=== PATIENT | male | born 1980 | race Two or more races ===

== ENCOUNTER 2024-06-08 16:40 | Inpatient (IN) | payer MEDICAID, OTHER ==
[~2024-06-08] VITALS: Ht 165.1 cm; Wt 84.5 kg
[2024-06-08 17:00] VITALS: PULSE 102; RESP 13; O2SAT 92
--- NOTE | 2024-06-08 17:10 | ED.PDOC ---
GI ASSESSMENT HPI Comments 43 year old male brought in by EMS presents to the ED with a chief complaint of abdominal distension onset today. Per EMS, patient was at [facility], goes every 2 weeks for paracentesis. Patient's BP was low, was combative, did not allow urgent care to assist him and EMS was called. Upon ED arrival, patient's BP was 96/64, states he is experiencing abdominal distension and rectal pain. Denies any abominal pain, nausea, vomiting, diarrhea, fever, chest pain. No other symptoms or modifying factors present at this time. Patient has a extensive medical history including CHF, atrial fibrillation, liver cirrhosis and displays bilateral lower extremity amputations. 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, Medications, Allergies Allergies: Coded Allergies: NO KNOWN ALLERGIES (Unverified , 06/08/24) Information Source: Patient, Emergency Med Personnel Mode of Arrival: EMS Timing: Hours Duration: Since onset Prehospital treatment: None Quality: None Severity: Moderate Recent: None Recent Hx of: Liver Disease Pain Location: Diffuse Modifying Factors: Nothing Associated sign and symptoms: Abdominal Pain, Other (rectal pain) Past Medical History PAST MEDICAL HISTORY: CHF, DM, Liver Surgical History: Denies all surgeries Family History Family History: Reviewed,noncontributory to illness, No family hx of Cancer, No family hx of DM, No family hx of Heart kelvin, No family hx of HTN, No family hx ofKidney kelvin, No family hx of Liver kelvin, No family hx of Lung kelvin, No family hx of Stroke Social History Smoker: Non-Smoker Alcohol: Denies ETOH Use Drugs: Denies Drug Use Lives In: Home Constitutional: denies: chills, diaphoresis, fatigue, fever, malaise, sweats, weakness, others EENTM: denies: blurred vision, double vision, ear bleeding, ear discharge, ear drainage, ear pain, ear ringing, eye pain, eye redness, hearing loss, mouth pain, mouth swelling, nasal discharge, nose bleeding, nose congestion, nose pain, photophobia, tearing, throat pain, throat swelling, voice changes, others Respiratory: denies: cough, hemoptysis, orthopnea, SOB at rest, shortness of breath, SOB with excertion, stridor, wheezing, others Cardiovascular: denies: chest pain, dizzy spells, diaphoresis, Dyspnea on exertion, edema, irregular heart beat, left arm pain, lightheadedness, palpitations, PND, syncope, others Gastrointestinal: reports: abdomen distended, rectal pain; denies: abdominal pain, blood streaked bowels, constipated, diarrhea, dysphagia, difficulty swall owing, hematemesis, melena, nausea, poor appetite, poor fluid intake, rectal bleeding, vomiting, others Genitourinary: denies: burning, dysuria, flank pain, frequency, hematuria, incontinence, penile discharge, penile sore, pain, testicle pain, testicle swelling, urgency, others Neurological: denies: dizziness, fainting, headache, left sided numbness, left sided weakness, numbness, paresthesia, pre-existing deficit, right sided numbness, right sided weakness, seizure, speech problems, tingling, tremors, weakness, others Musculoskeletal: denies: back pain, gout, joint pain, joint swelling, muscle pain, muscle stiffness, neck pain, others Integumetry: denies: bruises, change in color, change in hair/nails, dryness, laceration, lesions, lumps, rash, wounds, others Allergic/Immunocompromised: denies: Difficulty Healing, Frequent Infections, Hives, Itching, others Hematologic/Lymphatic: denies: anemia, blood clots, easy bleeding, easy bruising, swollen glands, others Endocrine: denies: excessive hunger, excessive sweating, excessive thirst, excessive urination, flushing, intolerance to cold, intolerance to heat, u nexplained weight gain, unexplained weight loss, others Psychiatric: denies: anxiety, bipolar disorder, depression, hopeless, panic disorder, schizophrenia, sleepless, suicidal, others All Other Systems: Reviewed and Negative Physical Exam General Appearance: Moderate Distress (Due to an extremely distended belly), Obese HEENT: Normal ENT Inspection, Pharynx Normal, TMs Normal Neck: Full Range of Motion, Non-Tender, Normal, Normal Inspection Respiratory: Chest Non-Tender, Lungs Clear, No Accessory Muscle Use, No Respiratory Distress, Normal Breath Sounds Cardiovascular: No Edema, No JVD, No Murmur, No Gallop, Normal Peripheral Pulses, Regular Rate/Rhythm Breast Exam: Deferred Gastrointestinal: Other (Patient displays of exceptionally distended belly due to ascites. Skin was taut. Patient was in pain.) Genitalia: Deferred Pelvic: Deferred Rectal: Deferred Extremities: Other (Patient displays bilateral mid with femoral amputations. Fracture.) Musculoskeletal : Apperance: Normal Neurologic: Alert Cerebellar Function: NOT DONE Reflexes: NOT DONE Skin: Dry, Normal Color, Warm Lymphatic: No Adenopathy Was a procedure done? Was a procedure done?: No GI differential Dx Differential Diagnosis: Other (Liver cirrhosis, ascites, CHF, sepsis, electrolyte abnormality) X-Ray, Labs, Meds, VS Vital Signs Date Time Temp Pulse Resp B/P (MAP) Pulse Ox O2 Delivery O2 Flow Rate FiO2 06/08/24 19:22 Room Air* 0 21 06/08/24 17:32 102 96/69 06/08/24 17:02 98.2 98 16 96/64 (75) 95 06/08/24 17:00 102 13 96/69 (78) 92 06/08/24 17:00 102 13 92 Room Air* 0 21 06/08/24 16:55 112 Lab Test 06/08/24 17:50 06/08/24 17:16 Range/Units Urine Color Yellow Yellow Urine Clarity Clear Clear Urine pH 5.0 5.0-9.0 Urine Specific [place] 1.022 1.001-1.035 Urine Protein Trace H Negative Urine Ketones Negative Negative Urine Blood Negative Negative /uL Urine Nitrite Negative Negative Urine Bilirubin Negative Negative Urine Urobilinogen 2 H Negative mg/dL Urine Leukocyte Esterase Negative Negative /uL Urine RBC 1 0 - 3 /hpf Urine Microscopic WBC 3 0-3 /HPF Urine Squamous Epithelial Cells Few <5 /hpf Urine Bacteria Few H None Seen /hpf Urine Glucose Normal Normal mg/dL White Blood Count 7.2 4.4-10.8 10^3/uL Red Blood Count 4.43 L 4.5-5.90 10^6/uL Hemoglobin 14.2 13.5-17.5 g/dL Hematocrit 42.1 41.0-53.0 % Mean Corpuscular Volume 94.9 80.0-100.0 fL Mean Corpuscular Hemoglobin 32.1 H 28.0-32.0 pg Mean Corpuscular Hemoglobin Concent 33.8 32.0-36.0 g/dL Red Cell Distribution Width 16.8 H 11.8-14.3 % Platelet Count 209 140-450 10^3/uL Mean Platelet Volume 7.4 6.9-10.8 fL Neutrophils (%) (Auto) 78.2 37.0-80.0 % Lymphocytes (%) (Auto) 5.4 L 10.0-50.0 % Monocytes (%) (Auto) 15.0 H 0.0-12.0 % Eosinophils (%) (Auto) 0.8 0.0-7.0 % Basophils (%) (Auto) 0.6 0.0-2.0 % Neutrophils # (Auto) 5.7 1.6-8.6 10 ^3/uL Lymphocytes # (Auto) 0.4 0.4-5.4 10 ^3/uL Monocytes # (Auto) 1.1 0-1.3 10 ^3/uL Eosinophils # (Auto) 0.1 0-0.8 10 ^3/uL Basophils # (Auto) 0 0-0.2 10 ^3/uL Nucleated Red Blood Cells 0.2 % Sodium Level 129 L 136-145 mmol/L Potassium Level 4.5 3.5-5.1 mmol/L Chloride Level 99 98-107 mmol/L Carbon Dioxide Level 21 20-31 mmol/L Anion Gap 9 5-15 Blood Urea Nitrogen 63 H 9-23 mg/dL Creatinine 1.71 H 0.700-1.30 mg/dL Glomerular Filtration Rate Calc 51 >90 mL/min BUN/Creatinine Ratio 36.8 H 10.0-20.0 Serum Glucose 73 L 74-106 mg/dL Calcium Level 8.9 8.7-10.4 mg/dL Total Bilirubin 3.4 H 0.2-1.0 mg/dL Aspartate Amino Transferase (AST) 26 13-40 U/L Alanine Aminotransferase (ALT) 21 7-40 U/L Alkaline Phosphatase 216 H 46-116 U/L B-Type Natriuretic Peptide 3831.34 0-100 pg/mL Total Protein 5.1 L 5.7-8.2 g/dL Albumin 2.7 L 3.2-4.8 g/dL Lipase 25 12-53 U/L X-Ray, Labs, Meds, VS Comment All studies performed the ED were evaluated by me personally. Laboratories revealed a significant CHF concern. Additionally, our Interventional Radiology Department was unavailable to perform the paracentesis and we believe we were going to need to transfer the patient. Dr. Russo arrived and stated he could manage that procedure. Dr. Russo removed approximately 8 L of fluid off patient's belly. Patient required for some albumin resuscitation as well as antibiotics to stave off any infective components. Patient arrives in AFib with a rate of 112. Patient's heart rate reduced between 98 and 102 and therefore, medication was not dispensed. Patient is a [facility] patient and therefore, I discussed the case with Dr. King and advised her of initial presentation as well as Dr. Russo's paracentesis fluid removal quantity and concerns of infection as well as cardiac issues. Patient will be admitted for continued management. Time of 1ST Reevaluation: 21:15 Reevaluation 1ST: Improved Consultation: PCP Patient Education/Counseling: Diagnosis, Treatment, Prognosis Family Education/Counseling: Diagnosis, Treatment, No Family Present Additional Information The following tests were ordered, and results were reviewed by me: US PARACENTESIS, CBC, CMP, LIPASE, EKG -x3, BNP Additional Information was gathered from interviewing the following independent historians: EMS I reviewed and agreed with the following test results read by other providers: US PARACENTESIS I discussed treatment and results with medical personnel and patient Departure 1 Departure Time of Disposition: 21:16 Impression: Primary Impression: Ascites Additional Impressions: Liver cirrhosis Atrial fibrillation Congestive heart failure (CHF) Disposition: ADMITTED INPATIENT Condition: Fair Discharged With: Self Critical Care Note Critical Care Time?: No Stability Stability form required: No Heart Score Heart Score: Heart Score Response (Comments) Value History Slightly Suspicious 0 EKG Repolarization Disturb 1 Age <45 0 Risk Factors 1 or 2 risk factors 1 Troponin N/A 0 Total 2 I personally scribed for NEGRITO CHRISTINE PAC ([email or web address]) on 06/08/24 at 17:10. Electronically submitted by Lashaun Jung ([email or web address]). I personally scribed for NEGRITO CHRISTINE PAC ([email or web address]) on 06/08/24 at 17:16. Electronically submitted by Lashaun Jung ([email or web address]). NEGRITO CHRISTINE PAC Jun 08, 2024 17:10
[2024-06-08] MEDS: METOPROLOL TARTRATE 1MG/1ML-5ML VIAL IV ONE (17:32)
[2024-06-08 17:56] LABS: Basophils # (auto) 0 10 ^3/uL (0-0.2); Basophils % (auto) 0.6 % (0.0-2.0); Eosinophils # (auto) 0.1 10 ^3/uL (0-0.8); Eosinophils % (auto) 0.8 % (0.0-7.0); Hematocrit 42.1 % (41.0-53.0); Hemoglobin 14.2 g/dL (13.5-17.5); Lymphocytes # (auto) 0.4 10 ^3/uL (0.4-5.4); Lymphocytes % (auto) 5.4 % (10.0-50.0); Mean Corpuscular Hemoglobin 32.1 pg (28.0-32.0); Mean Corpuscular Hgb Conc. 33.8 g/dL (32.0-36.0); Mean Corpuscular Volume 94.9 fL (80.0-100.0); Monocytes # (auto) 1.1 10 ^3/uL (0-1.3); Neutrophils # (auto) 5.7 10 ^3/uL (1.6-8.6); Neutrophils % (auto) 78.2 % (37.0-80.0); Nucleated Red Blood Cells % 0.2 %; Platelet Count (auto) 209 10^3/uL (140-450); Red Blood Cells 4.43 10^6/uL (4.5-5.90); Red Cell Distribution Width 16.8 % (11.8-14.3); White Blood Cell 7.2 10^3/uL (4.4-10.8)
[2024-06-08 18:07] LABS: Alanine Aminotransferase 21 U/L (7-40); Anion Gap 9 (5-15); Aspartate Aminotransferase 26 U/L (13-40); BUN/Creatinine Ratio 36.8 (10.0-20.0); Calcium 8.9 mg/dL (8.7-10.4); Carbon Dioxide 21 mmol/L (20-31); Chloride 99 mmol/L (98-107); Lipase 25 U/L (12-53); Potassium 4.5 mmol/L (3.5-5.1)
[2024-06-08 18:08] LABS: Albumin 2.7 g/dL (3.2-4.8); Alkaline Phosphatase 216 U/L (46-116); Bilirubin, Total 3.4 mg/dL (0.2-1.0); Blood Urea Nitrogen 63 mg/dL (9-23); Glucose 73 mg/dL (74-106); Sodium 129 mmol/L (136-145); Total Protein 5.1 g/dL (5.7-8.2)
[2024-06-08 19:10] LABS: Urine Bacteria FEW /hpf (None Seen); Urine Blood Negative /uL (Negative); Urine Clarity Clear (Clear); Urine Color Yellow (Yellow); Urine Protein, UAD TRACE (Negative); Urine Specific Gravity 1.022 (1.001-1.035); Urine Squamous Epithelial Cell FEW /hpf (<5); Urine Urobilinogen 2 mg/dL (Negative); Urine WBC 3 /HPF (0-3)
--- NOTE | 2024-06-08 19:17 | ECG ---
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
--- NOTE | 2024-06-08 22:07 | DVHNC2 ---
Other Procedure Procedure Paracentesis ultrasound-guided Indication Rule out spontaneous bacterial peritonitis and severe abdominal pain Anesthetic Lidocaine Prep Iodine Success Successful procedure, obtain approximately 8 L of ascitic fluid which was serous Informed consent obtained: Yes Risks, benefits, and alternati: Yes Date of Service: Jun 08, 2024 Billing Provider: JESUS MANUEL MCDANIELS MD Common Visit Codes: PROCEDURE ONLY Procedure Codes: 21550-[id number] W/IMAGING LOVELY ALVAREZ RESIDENT Jun 08, 2024 22:07
[2024-06-08] MEDS: FUROSEMIDE 40 MG/4 ML VIAL IV ONE (22:10)
[2024-06-08] MEDS: ALBUMIN 25% 100 ML IV ONE (22:10)
[2024-06-08] MEDS: PIPERACILLIN-TAZOB 3.375GM 100 ML IV ONE (22:40)
[2024-06-09] MEDS ORDERED: MORPHINE SULFATE INJ 2 MG/ml SYRG IV PRN (01:00)
[2024-06-09] MEDS ORDERED: DOCUSATE SOD 100 MG CAP PO PRN (01:00)
[2024-06-09] MEDS ORDERED: DEXTROSE (50%) 50ML SYRG IV PRN (01:00)
[2024-06-09] MEDS ORDERED: NITROGLYCERIN 0.4 MG SL TAB SL PRN (01:00)
[2024-06-09] MEDS ORDERED: ONDANSETRON HCL 4 MG/2 ML VIAL IV PRN (01:00)
[2024-06-09] MEDS: SODIUM CHLORIDE 0.9% 500 ML IV ONE (01:01)
--- NOTE | 2024-06-09 01:17 | DVHHP2 ---
History of Present Illness Reason for Visit: Ascites History of Present Illness The patient is a 43-year-old male with past medical history of CHF, diabetes, and liver disease who presented to [facility] ED for evaluation of abdominal distention. As reported by EMS, patient was at [facility], goes every 2 weeks for paracentesis. but Patient's BP was low, was combative, did not allow urgent care to assist him so EMS were called. When EMS arrived on the scene, patient's BP was 96/64, states he is experiencing abdominal distension and rectal pain. Patient was seen and evaluated in the ED, laboratory data shows WBC 7.2, platelets 209, sodium 129, potassium 4.5, BUN 63, creatinine 1.71, GFR 51, glucose 73, albumin 2.7, protein 5.1, total bilirubin 3.4, BNP 3831.34, blood pressure 93/68, heart rate 102, temperature 98.2 F, O2 saturation 95% room air. Patient underwent paracentesis procedure with 8400 L of fluid was removed. Patient was started on IV antibiotic regimen Zosyn, given IV Lasix, please see medication orders section in the computer. On my assessment , patient denied chest pain, no headache, no dizziness, no diaphoresis, no shortness a breath, no nausea, no vomiting, no fever, no chills. Patient was admitted for further evaluation and medical management. Past Medical History CHF, DM, Liver Disease, Atrial fibrillation Past Surgical History Denies all surgeries Family History Reviewed, noncontributory to the management of this case. Past Social History The patient lives at home, denies smoking, alcohol or illicit drugs abuse. Review of Systems Constitutional: Yes: Weakness; No: Fever, Chills, Sweats, Malaise, Other Eyes: No: Pain, Vision change, Conjunctivae inflammation, Eyelid inflammation, Other, Redness ENT: No: Ear pain, Ear discharge, Nose pain, Nose discharge, Nose congestion, Mouth pain, Mouth swelling, Throat pain, Throat swelling, Other Respiratory: No: Cough, Dry, Shortness of breath, SOB with excertion, Wheezing, Hemoptysis, Pleuritic Pain, Sputum, Wheezing, Other Cardiovascular: No: Chest Pain, Palpitations, Orthopnea, Paroxysmal Noc. Dyspnea, Edema, Lt Headedness, Other Gastrointestinal: Abdominal Pain, Other (Distended abdomen); No: Nausea, Vomiting, Diarrhea, Constipation, Melena, Hematochezia Genitourinary: No Dysuria, No Frequency, No Incontinence, No Hematuria, No Retention, No Other Musculoskeletal: No: other, neck pain, shoulder pain, arm pain, back pain, hand pain, leg pain, foot pain Skin: No: Rash, Lesions, Jaundice, Bruising, Other Neurological: No: Weakness, Numbness, Incoordination, Change in speech, Confusion, Seizures, Other Allergies: Coded Allergies: NO KNOWN ALLERGIES (Unverified , 06/08/24) Exam Vital Signs Vital Signs Date Time Temp Pulse Resp B/P (MAP) Pulse Ox O2 Delivery O2 Flow Rate FiO2 06/08/24 22:10 93/68 06/08/24 19:22 Room Air* 0 21 06/08/24 17:32 102 06/08/24 17:02 98.2 16 95 General Appearance: Alert, Oriented X3, Cooperative, No acute distress HEENT: Atraumatic, PERRLA, EOMI, Mucous membr. moist/pink Respiratory: Clear to auscultation, Normal air movement Cardiovascular: Regular rate, Normal S1, Normal S2, No murmurs Abdominal: Normal bowel sounds, Soft, No hepatospenomegaly, No masses, Other (Reports tenderness) Extremities: No clubbing, No cyanosis, No edema, Normal pulses, No tenderness/swelling Skin: No rashes, No breakdown, No significant lesion Neuro: Normal speech, Normal tone, Sensation intact, Cranial nerves 3-12 NL, Reflexes 2+, Other (Generalized weakness) Psych/Mental Status: Mental status NL, Mood NL Labs/Xrays Labs Test 06/08/24 17:50 06/08/24 17:16 Range/Units Urine Color Yellow Yellow Urine Clarity Clear Clear Urine pH 5.0 5.0-9.0 Urine Specific [place] 1.022 1.001-1.035 Urine Protein Trace H Negative Urine Ketones Negative Negative Urine Blood Negative Negative /uL Urine Nitrite Negative Negative Urine Bilirubin Negative Negative Urine Urobilinogen 2 H Negative mg/dL Urine Leukocyte Esterase Negative Negative /uL Urine RBC 1 0 - 3 /hpf Urine Microscopic WBC 3 0-3 /HPF Urine Squamous Epithelial Cells Few <5 /hpf Urine Bacteria Few H None Seen /hpf Urine Glucose Normal Normal mg/dL White Blood Count 7.2 4.4-10.8 10^3/uL Red Blood Count 4.43 L 4.5-5.90 10^6/uL Hemoglobin 14.2 13.5-17.5 g/dL Hematocrit 42.1 41.0-53.0 % Mean Corpuscular Volume 94.9 80.0-100.0 fL Mean Corpuscular Hemoglobin 32.1 H 28.0-32.0 pg Mean Corpuscular Hemoglobin Concent 33.8 32.0-36.0 g/dL Red Cell Distribution Width 16.8 H 11.8-14.3 % Platelet Count 209 140-450 10^3/uL Mean Platelet Volume 7.4 6.9-10.8 fL Neutrophils (%) (Auto) 78.2 37.0-80.0 % Lymphocytes (%) (Auto) 5.4 L 10.0-50.0 % Monocytes (%) (Auto) 15.0 H 0.0-12.0 % Eosinophils (%) (Auto) 0.8 0.0-7.0 % Basophils (%) (Auto) 0.6 0.0-2.0 % Neutrophils # (Auto) 5.7 1.6-8.6 10 ^3/uL Lymphocytes # (Auto) 0.4 0.4-5.4 10 ^3/uL Monocytes # (Auto) 1.1 0-1.3 10 ^3/uL Eosinophils # (Auto) 0.1 0-0.8 10 ^3/uL Basophils # (Auto) 0 0-0.2 10 ^3/uL Nucleated Red Blood Cells 0.2 % Sodium Level 129 L 136-145 mmol/L Potassium Level 4.5 3.5-5.1 mmol/L Chloride Level 99 98-107 mmol/L Carbon Dioxide Level 21 20-31 mmol/L Anion Gap 9 5-15 Blood Urea Nitrogen 63 H 9-23 mg/dL Creatinine 1.71 H 0.700-1.30 mg/dL Glomerular Filtration Rate Calc 51 >90 mL/min BUN/Creatinine Ratio 36.8 H 10.0-20.0 Serum Glucose 73 L 74-106 mg/dL Calcium Level 8.9 8.7-10.4 mg/dL Total Bilirubin 3.4 H 0.2-1.0 mg/dL Aspartate Amino Transferase (AST) 26 13-40 U/L Alanine Aminotransferase (ALT) 21 7-40 U/L Alkaline Phosphatase 216 H 46-116 U/L B-Type Natriuretic Peptide 3831.34 0-100 pg/mL Total Protein 5.1 L 5.7-8.2 g/dL Albumin 2.7 L 3.2-4.8 g/dL Lipase 25 12-53 U/L Assessment/Plan Assessment/Plan Ascites Electrolyte imbalance Liver cirrhosis Atrial fibrillation Generalized weakness Acute exacerbation of congestive heart failure Plan 1. Admit to telemetry unit 2. Breathing treatment 3. Pain control management 4. IV antibiotic management 5. Management of fluids and electrolytes 6. Consultation for Cardiology 7. Diagnostic test chest x-ray 8. DVT prophylaxis-on SCDs 9. Repeat labs CBC, CMP in a.m. 10. Home medication reviewed and reconciled 11. Continue with current medical management 12. Treatment plan discussed with patient and RN. Patient verbalized understanding. Plan discussed with: Patient, Other (RN) My Orders Orders - RUBINA BECKETT DNP Procedure Category Date Status Time Sodium Chloride 0.9% PHA 06/09/24 In Process 01:00 Complete Blood Count LAB 06/09/24 Transmitted 04:00 Comprehensive LAB 06/09/24 Transmitted Metabolic Panel 04:00 Spironolactone PHA 06/09/24 Transmitted (Aldactone) 10:00 Furosemide Injection PHA 06/09/24 Transmitted (Lasix Injection) 10:00 Carvedilol Tablet PHA 06/09/24 Transmitted (Coreg Tablet) 10:00 Zosyn Extended PHA 06/09/24 Transmitted Infusion 06:00 * Cardiology Consult CONS 06/09/24 Transmitted 00:58 Glucose Blood PHA 06/09/24 Transmitted (Accu-Chek Comfort 07:00 Mild Sliding Scale PHA 06/09/24 Transmitted 07:00 Dextrose 50% Syringe PHA 06/09/24 Transmitted 01:00 Admit ADMIT 06/09/24 Transmitted 00:58 Allergies IVETTE 06/09/24 In Process 00:58 Code Status CODE 06/09/24 Transmitted 00:58 Sodium Chloride Lock PHA 06/09/24 Transmitted (Saline Lock Ns) 06:00 Oxygen Per Hour RT 06/09/24 Transmitted 00:58 Hydrocodone-Acet PHA 06/09/24 Transmitted 5/325mg Tab ([place] 01:00 Ondansetron Hcl PHA 06/09/24 Transmitted (Zofran) 01:00 Docusate Sodium PHA 06/09/24 Transmitted Capsule (Colace 01:00 Fall Risk Precautions IVETTE 06/09/[address] 00:58 Complete Blood Count LAB 06/10/24 Verified 04:00 Comprehensive LAB 06/10/24 Verified Metabolic Panel 04:00 Echo 2d Mode Cardiac US 06/09/24 Transmitted DOP 00:58 Condition: Serious IVETTE 06/09/24 In Process 00:58 Sequential IVETTE 06/09/24 In Process Compression Device Nitroglycerin PHA 06/09/24 Transmitted Sublingual (Ntrostat 01:00 Morphine Sulfate PHA 06/09/24 Transmitted Injection 01:00 Notify Of Changes [facility] 06/09/24 In Process From Base 00:58 Financial Analyst For [facility] 06/09/24 In Process 24 Hours 00:58 Emergency Dysrhythmia [facility] 06/09/24 In Process Protocol 00:58 Rhythm Strips Once [facility] 06/09/24 In Process Every Shift 00:58 Oxygen By Nasal RT 06/09/24 Transmitted Cannula 00:58 Consistent DIET 06/09/24 Transmitted Carb(Ccho)Diabetes Breakfast Problem List: (1) Ascites (2) Electrolyte imbalance (3) Liver cirrhosis (4) Generalized weakness (5) Atrial fibrillation (6) Acute exacerbation of congestive heart failure Date of Service: Jun 09, 2024 Billing Provider: RUBINA BECKETT DNP Common Visit Codes: [id number] INP/OBS CARE (HIGH) RUBINA BECKETT DNP Jun 09, 2024 01:17
[2024-06-09 03:15] LABS: Basophils # (auto) 0.1 10 ^3/uL (0-0.2); Basophils % (auto) 0.8 % (0.0-2.0); Eosinophils # (auto) 0.1 10 ^3/uL (0-0.8); Hematocrit 39.2 % (41.0-53.0); Hemoglobin 13.4 g/dL (13.5-17.5); Lymphocytes # (auto) 0.4 10 ^3/uL (0.4-5.4); Lymphocytes % (auto) 6.4 % (10.0-50.0); Mean Corpuscular Hemoglobin 32.4 pg (28.0-32.0); Mean Corpuscular Hgb Conc. 34.2 g/dL (32.0-36.0); Mean Corpuscular Volume 94.7 fL (80.0-100.0); Monocytes % (auto) 14.7 % (0.0-12.0); Neutrophils # (auto) 5.1 10 ^3/uL (1.6-8.6); Neutrophils % (auto) 77.1 % (37.0-80.0); Platelet Count (auto) 167 10^3/uL (140-450); Red Blood Cells 4.14 10^6/uL (4.5-5.90); Red Cell Distribution Width 16.6 % (11.8-14.3); White Blood Cell 6.6 10^3/uL (4.4-10.8)
[2024-06-09] MEDS: ALBUMIN 25% 100 ML IV ONE (03:27)
[2024-06-09 03:34] LABS: Alanine Aminotransferase 16 U/L (7-40); Anion Gap 12 (5-15); Aspartate Aminotransferase 22 U/L (13-40); BUN/Creatinine Ratio 31.7 (10.0-20.0); Calcium 8.8 mg/dL (8.7-10.4); Chloride 101 mmol/L (98-107); Glucose 78 mg/dL (74-106)
[2024-06-09 03:44] LABS: Albumin 2.7 g/dL (3.2-4.8); Alkaline Phosphatase 184 U/L (46-116); Bilirubin, Total 3.9 mg/dL (0.2-1.0); Blood Urea Nitrogen 46 mg/dL (9-23); Carbon Dioxide 16 mmol/L (20-31); Sodium 129 mmol/L (136-145)
[2024-06-09] MEDS ORDERED: NOREPINEPHRINE 8 MG/250ML KIT 250 ML IV SCH (04:00)
[2024-06-09] MEDS: NOREPINEPHRINE 8 MG/250ML KIT 250 ML IV SCH (04:08)
[2024-06-09] MEDS: SODIUM CHLOR 0.9% PF (SALINE LOCK) 10ML VIAL/SYR IV SCH (05:34)
[2024-06-09] MEDS: ACCU-CHEK COMFORT CURVE STRIP VI SCH (06:28)
[2024-06-09] MEDS: InsuLIN REG 1unit/0.01ml Soln (100units/ml) SC SCH (06:28)
[2024-06-09] MEDS: PIPERACILLIN-TAZOB 3.375GM 100 ML IV SCH (06:54)
[2024-06-09] MEDS: ALBUMIN 25% 100 ML IV SCH (08:07)
[2024-06-09] MEDS: MIDODRINE HCL 10 MG TAB PO SCH (08:07)
[2024-06-09] MEDS: FUROSEMIDE 20 MG/2 ML VIAL IV SCH ×2 (10:10→16:38)
[2024-06-09] MEDS: SPIRONOLACTONE 25 MG TAB PO SCH ×2 (10:11→16:38)
[2024-06-09] MEDS: CARVEDILOL 3.125 MG TAB PO SCH (10:11)
--- NOTE | 2024-06-09 16:14 | DVHPN2 ---
Subjective patient non cooperative. mumbling during Questioning. Minimal History is obtained. Reviewed: Care Plan Changes from previous H/P or p: No Changes General: No Chills, No Night Sweats Eyes: No Pain, No Vision change, No Conjunctivae inflammation, No Eyelid inflammation, No Other, No Redness ENT: No Ear pain, No Ear discharge, No Nose pain, No Nose discharge, No Nose congestion, No Mouth pain, No Mouth swelling, No Throat pain, No Throat swelling, No Other Cardiovascular: No Chest Pain, No Palpitations, No Orthopnea, No Paroxysmal Noc. Dyspnea, No Edema, No Lt Headedness, No Other Respiratory: No Cough, No Dry, No Shortness of breath, No SOB with excertion, No Wheezing, No Hemoptysis, No Pleuritic Pain, No Sputum, No Other Gastrointestinal: No Nausea, No Vomiting; Abdominal Pain; No Diarrhea, No Constipation, No Melena, No Hematochezia; Other (Distended abdomen) Genitourinary: No Dysuria, No Frequency, No Incontinence, No Hematuria, No Retention, No Other Musculoskeletal: No other, No neck pain, No shoulder pain, No arm pain, No back pain, No hand pain, No leg pain, No foot pain Skin: No Rash, No Lesions, No Jaundice, No Bruising, No Other Objective Vitals Vital Signs Date Time Temp Pulse Resp B/P (MAP) Pulse Ox O2 Delivery O2 Flow Rate FiO2 06/09/24 15:30 133 18 99/61 (74) 97 06/09/24 08:45 98.1 98.1 06/09/24 08:21 Room Air* 0 21 Intake/Output Intake and Output 06/09/24 07:00 Intake Total 800 ml Output Total 1000 ml Balance -200 ml Intake IV Total 800 ml Output Urine Total 1000 ml General Appearance: Alert; No Cooperative HEENT: Atraumatic Lungs: Clear to auscultation Cardiovascular: Regular rate, Normal S1, Normal S2 Abdomen: Other (distended, mild TTP. did no cooperate with exam to fully exam ab. ) Rectal: Deferred Other Physical Findings S/p BKA. Medications Current Medications Medications Dose Ordered Sig/Zenia Route Start Time Stop Time Status Last Admin Dose Admin Spironolactone 25 mg DAILY PO 06/09/24 10:00 06/09/24 10:11 25 MG Furosemide 20 mg DAILY IV 06/09/24 10:00 06/09/24 10:10 20 MG Carvedilol 3.125 mg Q12HR PO 06/09/24 10:00 06/09/24 10:11 3.125 MG Piperacillin Sod/ Tazobactam Sod 100 ml @ 25 mls/hr Q8HR IV 06/09/24 06:00 06/09/24 14:03 25 MLS/HR Diagnostic Test (Pha) 1 strip ACHS 06/09/24 07:00 06/09/24 11:43 1 STRIP Insulin Human Regular ACHS SC 06/09/24 07:00 Dextrose 50 ml UD PRN IV 06/09/24 01:00 Sodium Chloride 10 ml Q8HR IV 06/09/24 06:00 06/09/24 14:02 10 ML Acetaminophen/ Hydrocodone Bitart 1 tab Q4HP PRN PO 06/09/24 01:00 Ondansetron HCl 4 mg Q4HP PRN IV 06/09/24 01:00 Docusate Sodium 100 mg BIDPRN PRN PO 06/09/24 01:00 Nitroglycerin 0.4 mg Q5MINP PRN SL 06/09/24 01:00 Morphine Sulfate 2 mg Q30M PRN IV 06/09/24 01:00 Norepinephrine Bitartrate 250 ml @ 3.75 mls/hr Q24H IV 06/09/24 04:15 06/09/24 04:08 3.75 MLS/HR Albumin Human 100 ml @ 100 mls/hr Q8H IV 06/09/24 07:15 06/10/24 00:14 06/09/24 15:21 100 MLS/HR Midodrine 10 mg TID@0600,1200,1800 PO 06/09/24 07:30 06/09/24 11:50 10 MG Laboratory Results Laboratory Tests 06/09/24 02:49 Chemistry Test 06/08/24 17:16 06/09/24 02:49 Albumin 2.7 g/dL (3.2-4.8) L 2.7 g/dL (3.2-4.8) L Calcium Level 8.9 mg/dL (8.7-10.4) 8.8 mg/dL (8.7-10.4) Total Protein 5.1 g/dL (5.7-8.2) L 5.0 g/dL (5.7-8.2) L Lipid panel Test 06/08/24 17:16 Lipase 25 U/L (12-53) Cardiac Markers Test 06/08/24 17:16 B-Type Natriuretic Peptide 3831.34 pg/mL (0-100) LFT Test 06/08/24 17:16 06/09/24 02:49 Alanine Aminotransferase (ALT) 21 U/L (7-40) 16 U/L (7-40) Alkaline Phosphatase 216 U/L (46-116) H 184 U/L (46-116) H Aspartate Amino Transferase (AST) 26 U/L (13-40) 22 U/L (13-40) Total Bilirubin 3.4 mg/dL (0.2-1.0) H 3.9 mg/dL (0.2-1.0) H Urinalysis Test 06/08/24 17:50 Urine Color Yellow (Yellow) Urine Clarity Clear (Clear) Urine pH 5.0 (5.0-9.0) Urine Specific [place] 1.022 (1.001-1.035) Urine Protein Trace (Negative) H Urine Ketones Negative (Negative) Urine Blood Negative /uL (Negative) Urine Nitrite Negative (Negative) Urine Bilirubin Negative (Negative) Urine Urobilinogen 2 mg/dL (Negative) H Urine Leukocyte Esterase Negative /uL (Negative) Urine RBC 1 /hpf (0 - 3) Urine Microscopic WBC 3 /HPF (0-3) Urine Squamous Epithelial Cells Few /hpf (<5) Urine Bacteria Few /hpf (None Seen) H Urine Glucose Normal mg/dL (Normal) Assessment/Plan Assessment/Plan Ascites - consult Dr. Hector for possible Para. Increase Lasix and Spirolactone to BID dosing. monitor I/Os. Electrolyte imbalance SULY vs SULY On CKD - consult Neprho, Monitor Diuresis. Liver cirrhosis - obtain ammonia. Atrial fibrillation - cont home meds. Generalized weakness Acute exacerbation of congestive heart failure - f/u ECHO result. - cont zosyn Management of fluids and electrolytes f/u Cardiology Repeat labs CBC, CMP in a.m. Plan discussed with: Patient My Orders Orders - KIMMIE FERNANDEZ MD Procedure Category Date Status Time Ammonia LAB 06/09/24 Logged 16:02 Complete Blood Count LAB 06/10/24 Verified 04:00 Ptt & Cbc Qd While On IVETTE 06/09/24 In Process Heparin 16:03 Comprehensive LAB 06/09/24 Logged Metabolic Panel 16:03 Ammonia LAB 06/09/24 Logged 16:03 * Critical Care CONS 06/09/24 Transmitted Consult 16:04 *[facility] CONS 06/09/24 Verified -[place] 16:04 Date of Service: Jun 09, 2024 Billing Provider: KIMMIE FERNANDEZ MD Common Visit Codes: [id number] INP/OBS CARE(HIGH) KIMMIE FERNANDEZ MD Jun 09, 2024 16:14
[2024-06-09] MEDS ORDERED: SPIRONOLACTONE 25 MG TAB PO SCH (16:15)
[2024-06-09] MEDS: LACTULOSE 20Gm/30ML SOLN PO ONE (18:45)
[2024-06-09 19:11] LABS: Alanine Aminotransferase 14 U/L (7-40); Albumin 3.3 g/dL (3.2-4.8); Anion Gap 13 (5-15); Aspartate Aminotransferase 30 U/L (13-40); BUN/Creatinine Ratio 29.2 (10.0-20.0); Chloride 100 mmol/L (98-107); Potassium 4.9 mmol/L (3.5-5.1)
[2024-06-09 19:26] LABS: Alkaline Phosphatase 156 U/L (46-116); Bilirubin, Total 4.1 mg/dL (0.2-1.0); Blood Urea Nitrogen 42 mg/dL (9-23); Calcium 8.5 mg/dL (8.7-10.4); Carbon Dioxide 14 mmol/L (20-31); Glucose 113 mg/dL (74-106); Sodium 127 mmol/L (136-145); Total Protein 5.2 g/dL (5.7-8.2)
[2024-06-09 19:30] VITALS: PULSE 97; RESP 22; O2SAT 93
--- NOTE | 2024-06-09 19:51 | DVHSR ---
APPROVED REPORT EXAM: Two-dimensional and M-mode echocardiogram with Doppler and color Doppler. Blood Pressure: 91/64 mmHg INDICATION CHF Exacerbation RISK FACTORS Height: 5' 5", Weight: 186 DIMENSIONS LVDd5.8 (3.8-5.7cm)LA (2D)4.0 (1.9-4.0cm)Aortic Root3.4 (2.0-3.7cm) LVDs4.6 (2.5-4.0cm)LA (MM) (1.9-4.0cm)Aortic Cusp Exc2.1 (1.5-2.0cm) EF (%) 30.0 (55-70%)Rt. Atrium7.6 (1.9-4.0cm)Asc. Aorta cm IVSd0.8 (0.7-1.1cm)RV (D) (1.8-2.4cm) PWd1.0 (0.7-1.1cm) Mitral Valve MitralMitral Stenosis E wave0.40m/sMV Mean GR.mmHg A wave0.30m/sMV Peak GR.mmHg E/A ratio1.32D MVAcm2 Aortic Valve Aortic ValveAortic Stenosis V10.40m/Traci Mean GR.2mmHg V20.90m/Traci Peak GR.3mmHg LVOT Diameter2.4 (1.8-2.4cm)Doppler AVA2.01cm2 Pulmonic Valve V20.50m/s Tricuspid Valve TR Velocity2.00m/s [id number] LEFT VENTRICLE The Left Ventricle is mildly dilated. There is normal left ventricular wall thickness. The left ventricle function is severely reduced, LVEF < 20%. Global hypokinesis. Paradoxic septum consistent right ventricle volume overload. RIGHT VENTRICLE The right ventricle is severely dilated. Systolic function is severely reduced. ATRIA The left atrial size is normal. The right atrium is severely dilated. MITRAL VALVE The mitral valve is grossly normal. Mitral regurgitation is mild. PULMONIC VALVE The pulmonic valve is normal in structure and function. There is no pulmonic valvular regurgitation. TRICUSPID VALVE The tricuspid valve is grossly normal. There is moderate to severe tricuspid regurgitation. AORTIC VALVE The aortic valve is trileaflet. No aortic regurgitation is present. GREAT VESSELS The aortic root is normal size. PERICARDIAL EFFUSION Trace to small pericardial effusion. Conclusion The Left Ventricle is mildly dilated. There is normal left ventricular wall thickness. The left ventr icle function is severely reduced, LVEF < 20%. Global hypokinesis. The right ventricle is severely dilated. Systolic function is severely reduced. The right atrium is severely dilated. There is moderate to severe tricuspid regurgitation. Trace to small pericardial effusion.
[2024-06-09] MEDS: LACTULOSE 20Gm/30ML SOLN PO SCH (21:48)
[2024-06-09] MEDS: HYDROcodone-ACET 5/325MG TAB PO PRN (22:51)
--- NOTE | 2024-06-09 22:51 | DVHINCON2 ---
Date of service: Jun 09, 2024 Referring Physician Danisha Reason for Consultation A-fib History of Present Illness This is a 43 year old male with a past medical history of CHF, atrial fibrillation, liver cirrhosis and bilateral lower extremity amputations who was brought in by EMS with complaint of abdominal distension since yesterday. Per EMS, the patient has been seen at [facility] urgent care which the patient has been visiting every 2 weeks for paracentesis. Patient's BP was low, was combative, did not allow urgent care to assist him and EMS was called. Upon ED arrival, patient's BP was 96/64. Patient states he is experiencing abdominal distension and rectal pain. NA 129, BUN 63, PRODUCTION RECORDER 1.71, BNP 3831, T bili 3.4, ammonia 101. Patient underwent US guided paracentesis which was a successful procedure, obtain approximately 8 L of ascitic fluid which was serous. Patient was admitted to the hospital. I am asked to consult on this patient. Allergies: Coded Allergies: NO KNOWN ALLERGIES (Unverified , 06/08/24) Current Medications Current Medications Medications (Trade) Dose Ordered Sig/Zenia Route PRN Reason Start Time Stop Time Status Last Admin Spironolactone (Aldactone) 25 mg DAILY PO 06/09/24 10:00 06/09/24 10:11 Furosemide (Lasix Injection) 20 mg DAILY IV 06/09/24 10:00 06/09/24 10:10 Carvedilol (Coreg Tablet) 3.125 mg Q12HR PO 06/09/24 10:00 06/09/24 10:11 Piperacillin Sod/ Tazobactam Sod 100 ml @ 25 mls/hr Q8HR IV 06/09/24 06:00 Diagnostic Test (Pha) (Accu-Chek Comfort Curve T) 1 strip ACHS 06/09/24 07:00 06/09/24 11:43 Insulin Human Regular (InsuLIN R) ACHS SC 06/09/24 07:00 Dextrose 50 ml UD PRN IV Blood Sugar LESS THAN 60 06/09/24 01:00 Sodium Chloride (Saline Lock Ns) 10 ml Q8HR IV 06/09/24 06:00 06/09/24 05:34 Acetaminophen/ Hydrocodone Bitart ([place] 5/325MG Tab) 1 tab Q4HP PRN PO MODERATE PAIN (4-6 PAIN SCALE) 06/09/24 01:00 Ondansetron HCl (Zofran) 4 mg Q4HP PRN IV NAUSEA / VOMITING 06/09/24 01:00 Docusate Sodium (Colace Capsule) 100 mg BIDPRN PRN PO FOR CONSTIPATION 06/09/24 01:00 Nitroglycerin (Ntrostat Sublingual) 0.4 mg Q5MINP PRN SL FOR CHEST PAIN 06/09/24 01:00 Morphine Sulfate 2 mg Q30M PRN IV FOR CHEST PAIN 06/09/24 01:00 Norepinephrine Bitartrate 250 ml @ 3.75 mls/hr Q24H IV 06/09/24 04:00 06/09/24 04:02 DC Norepinephrine Bitartrate 250 ml @ 3.75 mls/hr Q24H IV 06/09/24 04:15 06/09/24 04:08 Albumin Human 100 ml @ 100 mls/hr Q8H IV 06/09/24 07:15 06/10/24 00:14 06/09/24 08:07 Midodrine (Proamatine Tablet) 10 mg TID@0600,1200,1800 PO 06/09/24 07:30 06/09/24 11:50 Review of Systems Constitutional: denies: chills, diaphoresis, fatigue, fever, malaise, sweats, weakness, others EENTM: denies: blurred vision, double vision, ear bleeding, ear discharge, ear drainage, ear pain, ear ringing, eye pain, eye redness, hearing loss, mouth pain, mouth swelling, nasal discharge, nose bleeding, nose congestion, nose katarina n, photophobia, tearing, throat pain, throat swelling, voice changes, others Respiratory: denies: cough, hemoptysis, orthopnea, SOB at rest, shortness of breath, SOB with excertion, stridor, wheezing, others Cardiovascular: denies: chest pain, dizzy spells, diaphoresis, Dyspnea on exertion, edema, irregular heart beat, left arm pain, lightheadedness, palpitations, PND, syncope, others Gastrointestinal: reports: abdomen distended, rectal pain; denies: abdominal pain, blood streaked bowels, constipated, diarrhea, dysphagia, difficulty swallowing, hematemesis, melena, nausea, poor appetite, poor fluid intake, rectal bleeding, vomiting, others Genitourinary: denies: burning, dysuria, flank pain, frequency, hematuria, incontinence, penile discharge, penile sore, pain, testicle pain, testicle swelling, urgency, others Neurological: denies: dizziness, fainting, headache, left sided numbness, left sided weakness, numbness, paresthesia, pre-existing deficit, right sided numbness, right sided weakness, seizure, speech problems, tingling, tremors, weakness, others Musculoskeletal: denies: back pain, gout, joint pain, joint swelling, muscle pain, muscle stiffness, neck pain, others Integumetry: denies: bruises, change in color, change in hair/nails, dryness, laceration, lesions, lumps, rash, wounds, others Allergic/Immunocompromised: denies: Difficulty Healing, Frequent Infections, Hives, Itching, others Hematologic/Lymphatic: denies: anemia, blood clots, easy bleeding, easy bruising, swollen glands, others Endocrine: denies: excessive hunger, excessive sweating, excessive thirst, excessive urination, flushing, intolerance to cold, intolerance to heat, unexplained weight gain, unexplained weight loss, others Psychiatric: denies: anxiety, bipolar disorder, depression, hopeless, panic disorder, schizophrenia, sleepless, suicidal, others All Other Systems: Reviewed and Negative Vital Signs Vital Signs Date Time Temp Pulse Resp B/P (MAP) Pulse Ox O2 Delivery O2 Flow Rate FiO2 06/09/24 11:35 77/55 06/09/24 11:30 101 18 97 06/09/24 08:45 98.1 98.1 06/09/24 08:21 Room Air* 0 21 Physical Exam GENERAL: Awake, alert, oriented. LUNGS: Clear. CARDIOVASCULAR: Heart sounds are good. ABDOMEN: Distended. Labs/Diagnostic Data Labs Test 06/09/24 11:42 06/09/24 02:49 06/08/24 17:50 06/08/24 17:16 Range/Units POC Glucose 102 70-106 mg/dl White Blood Count 6.6 4.4-10.8 10^3/uL Red Blood Count 4.14 L 4.5-5.90 10^6/uL Hemoglobin 13.4 L 13.5-17.5 g/dL Hematocrit 39.2 L 41.0-53.0 % Mean Corpuscular Volume 94.7 80.0-100.0 fL Mean Corpuscular Hemoglobin 32.4 H 28.0-32.0 pg Mean Corpuscular Hemoglobin Concent 34.2 32.0-36.0 g/dL Red Cell Distribution Width 16.6 H 11.8-14.3 % Platelet Count 167 140-450 10^3/uL Mean Platelet Volume 7.6 6.9-10.8 fL Neutrophils (%) (Auto) 77.1 37.0-80.0 % Lymphocytes (%) (Auto) 6.4 L 10.0-50.0 % Monocytes (%) (Auto) 14.7 H 0.0-12.0 % Eosinophils (%) (Auto) 1.0 0.0-7.0 % Basophils (%) (Auto) 0.8 0.0-2.0 % Neutrophils # (Auto) 5.1 1.6-8.6 10 ^3/uL Lymphocytes # (Auto) 0.4 0.4-5.4 10 ^3/uL Monocytes # (Auto) 1.0 0-1.3 10 ^3/uL Eosinophils # (Auto) 0.1 0-0.8 10 ^3/uL Basophils # (Auto) 0.1 0-0.2 10 ^3/uL Nucleated Red Blood Cells 0.0 % Sodium Level 129 L 136-145 mmol/L Potassium Level 4.0 3.5-5.1 mmol/L Chloride Level 101 98-107 mmol/L Carbon Dioxide Level 16 L 20-31 mmol/L Anion Gap 12 5-15 Blood Urea Nitrogen 46 #H 9-23 mg/dL Creatinine 1.45 H 0.700-1.30 mg/dL Glomerular Filtration Rate Calc 62 >90 mL/min BUN/Creatinine Ratio 31.7 H 10.0-20.0 Serum Glucose 78 74-106 mg/dL Calcium Level 8.8 8.7-10.4 mg/dL Total Bilirubin 3.9 H 0.2-1.0 mg/dL Aspartate Amino Transferase (AST) 22 13-40 U/L Alanine Aminotransferase (ALT) 16 7-40 U/L Alkaline Phosphatase 184 H 46-116 U/L Total Protein 5.0 L 5.7-8.2 g/dL Albumin 2.7 L 3.2-4.8 g/dL Urine Color Yellow Yellow Urine Clarity Clear Clear Urine pH 5.0 5.0-9.0 Urine Specific [place] 1.022 1.001-1.035 Urine Protein Trace H Negative Urine Ketones Negative Negative Urine Blood Negative Negative /uL Urine Nitrite Negative Negative Urine Bilirubin Negative Negative Urine Urobilinogen 2 H Negative mg/dL Urine Leukocyte Esterase Negative Negative /uL Urine RBC 1 0 - 3 /hpf Urine Microscopic WBC 3 0-3 /HPF Urine Squamous Epithelial Cells Few <5 /hpf Urine Bacteria Few H None Seen /hpf Urine Glucose Normal Normal mg/dL B-Type Natriuretic Peptide 3831.34 0-100 pg/mL Lipase 25 12-53 U/L Assessment Atrial fibrillation. Atrial fibrillation with ascites. Hyponatremia. Generalized weakness. Acute exacerbation of congestive heart failure. Plan/Recommendation I agree with your ongoing assessment and care of plan. Telemetry reviewed. Echocardiogram. [place] for pain management. Coreg. Diuretics with Lasix. Morphine for pain management. IV antibiotics as ordered. Aldactone. Additional plan as per the hospital course. A total of 45 minutes was spent reviewing the patient record, examining the patient, making a diagnostic and therapeutic plan, discussing this plan with medical personnel, following up on diagnostic studies and following the patient for clinical stability excluding any and all procedures. At least 50% of this time was spent in direct, [id number] contact. Plan discussed with: Patient ARNOLD BAUTISTA MD Jun 09, 2024 12:09
[2024-06-10 06:55] LABS: Basophils # (auto) 0 10 ^3/uL (0-0.2); Basophils % (auto) 0.5 % (0.0-2.0); Eosinophils # (auto) 0.1 10 ^3/uL (0-0.8); Eosinophils % (auto) 1.1 % (0.0-7.0); Hematocrit 44.3 % (41.0-53.0); Hemoglobin 14.8 g/dL (13.5-17.5); Lymphocytes # (auto) 0.5 10 ^3/uL (0.4-5.4); Lymphocytes % (auto) 6.8 % (10.0-50.0); Mean Corpuscular Hemoglobin 31.9 pg (28.0-32.0); Mean Corpuscular Hgb Conc. 33.4 g/dL (32.0-36.0); Mean Corpuscular Volume 95.3 fL (80.0-100.0); Monocytes # (auto) 1.3 10 ^3/uL (0-1.3); Monocytes % (auto) 16.6 % (0.0-12.0); Neutrophils # (auto) 5.7 10 ^3/uL (1.6-8.6); Nucleated Red Blood Cells % 0.2 %; Platelet Count (auto) 226 10^3/uL (140-450); Red Blood Cells 4.65 10^6/uL (4.5-5.90); Red Cell Distribution Width 16.9 % (11.8-14.3); White Blood Cell 7.6 10^3/uL (4.4-10.8)
[2024-06-10 07:16] LABS: Alanine Aminotransferase 14 U/L (7-40); Albumin 3.5 g/dL (3.2-4.8); Anion Gap 14 (5-15); Aspartate Aminotransferase 18 U/L (13-40); BUN/Creatinine Ratio 31.9 (10.0-20.0); Chloride 100 mmol/L (98-107); Potassium 3.7 mmol/L (3.5-5.1)
[2024-06-10 07:25] VITALS: PULSE 102; RESP 12; O2SAT 95
[2024-06-10 07:26] LABS: Alkaline Phosphatase 161 U/L (46-116); Bilirubin, Total 4.9 mg/dL (0.2-1.0); Blood Urea Nitrogen 43 mg/dL (9-23); Carbon Dioxide 16 mmol/L (20-31); Glucose 118 mg/dL (74-106); Sodium 130 mmol/L (136-145); Total Protein 5.5 g/dL (5.7-8.2)
--- NOTE | 2024-06-10 13:03 | DVHPN2 ---
Subjective Patient today is more coherent. Refusing medications orally and occasional IV Had one episode of coffee ground emesis and melena. Reviewed: Care Plan Changes from previous H/P or p: Changes General: No Chills, No Night Sweats Eyes: No Pain, No Vision change, No Conjunctivae inflammation, No Eyelid inflammation, No Other, No Redness ENT: No Ear pain, No Ear discharge, No Nose pain, No Nose discharge, No Nose congestion, No Mouth pain, No Mouth swelling, No Throat pain, No Throat swelling, No Other Cardiovascular: No Chest Pain, No Palpitations, No Orthopnea, No Paroxysmal Noc. Dyspnea, No Edema, No Lt Headedness, No Other Respiratory: No Cough, No Dry, No Shortness of breath, No SOB with excertion, No Wheezing, No Hemoptysis, No Pleuritic Pain, No Sputum, No Other Gastrointestinal: No Nausea, No Vomiting; Abdominal Pain; No Diarrhea, No Constipation, No Melena, No Hematochezia; Other (Distended abdomen) Genitourinary: No Dysuria, No Frequency, No Incontinence, No Hematuria, No Retention, No Other Musculoskeletal: No other, No neck pain, No shoulder pain, No arm pain, No back pain, No hand pain, No leg pain, No foot pain Skin: No Rash, No Lesions, No Jaundice, No Bruising, No Other Objective Vitals Vital Signs Date Time Temp Pulse Resp B/P (MAP) Pulse Ox O2 Delivery O2 Flow Rate FiO2 06/10/24 12:42 105/73 06/10/24 12:05 102 06/10/24 10:30 13 95 06/10/24 07:25 Room Air* 0 21 06/10/24 07:25 98.4 98.4 Intake/Output Intake and Output 06/10/24 07:00 Intake Total 500 ml Output Total 950 ml Balance -450 ml Intake IV Total 500 ml Output Urine Total 950 ml General Appearance: Alert; No Cooperative HEENT: Atraumatic Lungs: Clear to auscultation Cardiovascular: Regular rate, Normal S1, Normal S2 Abdomen: Other (distended, mild TTP. did no cooperate with exam to fully exam ab. ) Rectal: Deferred Other Physical Findings S/p BKA. Medications Current Medications Medications Dose Ordered Sig/Zenia Route Start Time Stop Time Status Last Admin Dose Admin Carvedilol 3.125 mg Q12HR PO 06/09/24 10:00 06/09/24 10:11 3.125 MG Piperacillin Sod/ Tazobactam Sod 100 ml @ 25 mls/hr Q8HR IV 06/09/24 06:00 06/10/24 05:54 25 MLS/HR Diagnostic Test (Pha) 1 strip ACHS 06/09/24 07:00 06/10/24 11:48 1 STRIP Insulin Human Regular ACHS SC 06/09/24 07:00 Dextrose 50 ml UD PRN IV 06/09/24 01:00 Sodium Chloride 10 ml Q8HR IV 06/09/24 06:00 06/10/24 06:10 10 ML Acetaminophen/ Hydrocodone Bitart 1 tab Q4HP PRN PO 06/09/24 01:00 06/09/24 22:51 1 TAB Ondansetron HCl 4 mg Q4HP PRN IV 06/09/24 01:00 Docusate Sodium 100 mg BIDPRN PRN PO 06/09/24 01:00 Nitroglycerin 0.4 mg Q5MINP PRN SL 06/09/24 01:00 Morphine Sulfate 2 mg Q30M PRN IV 06/09/24 01:00 Norepinephrine Bitartrate 250 ml @ 3.75 mls/hr Q24H IV 06/09/24 04:15 06/10/24 10:05 22.5 MLS/HR Midodrine 10 mg TID@0600,1200,1800 PO 06/09/24 07:30 06/10/24 05:54 10 MG Furosemide 20 mg BIDD IV 06/09/24 16:15 06/10/24 05:54 20 MG Spironolactone 25 mg BID PO 06/09/24 16:15 06/09/24 16:38 25 MG Lactulose 30 ml Q4HR PO 06/09/24 22:00 06/10/24 02:18 30 ML Octreotide Acetate 500 mcg/ Sodium Chloride 100 ml @ 10 mls/hr Q10H IV 06/10/24 13:00 UNV Pantoprazole Sodium 40 mg BID IV 06/10/24 22:00 UNV Laboratory Results Laboratory Tests 06/10/24 06:18 Chemistry Test 06/09/24 17:34 06/10/24 06:18 Albumin 3.3 g/dL (3.2-4.8) 3.5 g/dL (3.2-4.8) Calcium Level 8.5 mg/dL (8.7-10.4) L 9.0 mg/dL (8.7-10.4) Total Protein 5.2 g/dL (5.7-8.2) L 5.5 g/dL (5.7-8.2) L LFT Test 06/09/24 17:34 06/10/24 06:18 Alanine Aminotransferase (ALT) 14 U/L (7-40) 14 U/L (7-40) Alkaline Phosphatase 156 U/L (46-116) H 161 U/L (46-116) H Aspartate Amino Transferase (AST) 30 U/L (13-40) 18 U/L (13-40) Total Bilirubin 4.1 mg/dL (0.2-1.0) H 4.9 mg/dL (0.2-1.0) H Urinalysis Test 06/08/24 17:50 Urine Color Yellow (Yellow) Urine Clarity Clear (Clear) Urine pH 5.0 (5.0-9.0) Urine Specific [employer] 1.022 (1.001-1.035) Urine Protein Trace (Negative) H Urine Ketones Negative (Negative) Urine Blood Negative /uL (Negative) Urine Nitrite Negative (Negative) Urine Bilirubin Negative (Negative) Urine Urobilinogen 2 mg/dL (Negative) H Urine Leukocyte Esterase Negative /uL (Negative) Urine RBC 1 /hpf (0 - 3) Urine Microscopic WBC 3 /HPF (0-3) Urine Squamous Epithelial Cells Few /hpf (<5) Urine Bacteria Few /hpf (None Seen) H Urine Glucose Normal mg/dL (Normal) Microbiology Microbiology Date/Time Source Procedure Growth Status 06/09/24 12:42 Blood Blood Culture - Preliminary NO GROWTH AFTER 24 HOURS OF INCUBATION. Resulted Assessment/Plan Assessment/Plan Coffee Ground Emesis melena - Start octreotide drip - Start Panatopraazole BID - Consult stat GI- - zosyn - type and cross Ascites - consult Dr. Hector for possible Para. - Holding lasix and aldactone ( patient refusing ) due to low BP and potential bleed Hepatic encephaltophy- patient wx and wanes. Ammonia elevated. - refusing lactulose , patient coherent today. Electrolyte imbalance SULY vs SULY On CKD - consult Neprho Liver cirrhosis - Atrial fibrillation - cont home meds. Generalized weakness Acute exacerbation of congestive heart failure - f/u ECHO result. - cont zosyn Management of fluids and electrolytes Repeat labs CBC, CMP in a.m. Plan discussed with: Patient My Orders Orders - KIMMIE FERNANDEZ MD Procedure Category Date Status Time Ptt & Cbc Qd While On IVETTE 06/09/24 In Process Heparin 16:03 * Critical Care CONS 06/09/24 Transmitted Consult 16:04 *Dr[facility] CONS 06/09/24 Transmitted -[place] 16:04 Furosemide Injection PHA 06/09/24 In Process (Lasix Injection) 16:15 Spironolactone PHA 06/09/24 In Process (Aldactone) 16:15 Sodium Chl 0.9% PHA 06/10/24 Logged (So... W/Octreotide 13:00 Octreotide Acetate PHA 06/10/24 Logged (Sandostatin) 13:00 Pantoprazole PHA 06/10/24 Logged (Protonix) 22:00 * [facility] [employer] CONS 06/10/24 Transmitted 12:52 Date of Service: Jun 10, 2024 Billing Provider: KIMMIE FERNANDEZ MD Common Visit Codes: [id number] INP/OBS CARE(HIGH) KIMMIE FERNANDEZ MD Jun 10, 2024 13:03
[2024-06-10] MEDS: OCTREOTIDE ACETATE 100 MCG in SODIUM CHL 0.9% 50 ML IV ONE (13:46)
[2024-06-10] MEDS: OCTREOTIDE ACETATE 500 MCG in SODIUM CHL 0.9% 99 ML IV SCH (14:02)
[2024-06-10] MEDS: PANTOPRAZOLE 40 MG/10 ML VIAL INJ IV ONE (14:15)
--- NOTE | 2024-06-10 14:55 | DVHINCON2 ---
Date of service: Jun 10, [address] loza Reason for Consultation Nausea vomiting hematemesis abdominal distention History of Present Illness This 43-year-old male with a history of chronic liver disease diabetes congestive heart failure presented to the [facility] with complaints of abdominal distention patient also had some nausea vomiting patient had some threw up some coffee-ground material small amounts today with had some couple of black stools and hence the reason for the GI consult. Patient had a paracentesis recently at [facility] urgent care apparently where he goes every two weeks for paracentesis. Patient has complaints of still abdominal distention and some rectal pain. Apparently about 8 L of fluid was removed and was antibiotic was started the reason for GI consult is because of the ascites as well as the nausea vomiting and hematemesis hemoglobin is stable around 14 for the last two three days Past Medical History Diabetes mellitus chronic liver disease atrial fibrillation congestive heart failure Past Surgical History None Family History Noncontributory Social History History of moderate drinking Allergies: Coded Allergies: NO KNOWN ALLERGIES (Unverified , 06/08/24) Current Medications Current Medications Medications (Trade) Dose Ordered Sig/Zenia Route PRN Reason Start Time Stop Time Status Last Admin Furosemide (Lasix Injection) 20 mg BIDD IV 06/09/24 16:15 06/10/24 12:58 DC 06/10/24 05:54 Spironolactone (Aldactone) 25 mg BID PO 06/09/24 16:15 06/09/24 16:23 DC Spironolactone (Aldactone) 25 mg BID PO 06/09/24 16:15 06/10/24 12:58 DC 06/09/24 16:38 Lactulose 30 ml Q4HR PO 06/09/24 22:00 06/10/24 02:18 Octreotide Acetate 500 mcg/ Sodium Chloride 100 ml @ 10 mls/hr Q10H IV 06/10/24 13:00 06/10/24 14:02 Pantoprazole Sodium (Protonix) 40 mg BID IV 06/10/24 22:00 Review of Systems Weakness tiredness bilateral amputation both legs Vital Signs Vital Signs Date Time Temp Pulse Resp B/P (MAP) Pulse Ox O2 Delivery O2 Flow Rate FiO2 06/10/24 12:42 105/73 06/10/24 12:05 102 06/10/24 10:30 13 95 06/10/24 07:25 Room Air* 0 21 06/10/24 07:25 98.4 98.4 Physical Exam Moderately built and nourished young male slightly on the obese side in no acute distress but chronically ill looking Blood pressure slightly low and is on Levophed HEENT examination no pallor Lungs clear Cardiovascular unremarkable except for atrial fibrillation Abdomen distended with ascites no rigidity no guarding no masses Bowel sounds normal Extremities amputation of both legs Neurological intact Labs/Diagnostic Data Labs Test 06/10/24 13:39 06/10/24 11:46 06/10/24 06:18 06/08/24 17:50 Range/Units Ammonia 59 H 11-32 umol/L POC Glucose 101 70-106 mg/dl White Blood Count 7.6 4.4-10.8 10^3/uL Red Blood Count 4.65 4.5-5.90 10^6/uL Hemoglobin 14.8 13.5-17.5 g/dL Hematocrit 44.3 # 41.0-53.0 % Mean Corpuscular Volume 95.3 80.0-100.0 fL Mean Corpuscular Hemoglobin 31.9 28.0-32.0 pg Mean Corpuscular Hemoglobin Concent 33.4 32.0-36.0 g/dL Red Cell Distribution Width 16.9 H 11.8-14.3 % Platelet Count 226 140-450 10^3/uL Mean Platelet Volume 7.6 6.9-10.8 fL Neutrophils (%) (Auto) 75.0 37.0-80.0 % Lymphocytes (%) (Auto) 6.8 L 10.0-50.0 % Monocytes (%) (Auto) 16.6 H 0.0-12.0 % Eosinophils (%) (Auto) 1.1 0.0-7.0 % Basophils (%) (Auto) 0.5 0.0-2.0 % Neutrophils # (Auto) 5.7 1.6-8.6 10 ^3/uL Lymphocytes # (Auto) 0.5 0.4-5.4 10 ^3/uL Monocytes # (Auto) 1.3 0-1.3 10 ^3/uL Eosinophils # (Auto) 0.1 0-0.8 10 ^3/uL Basophils # (Auto) 0 0-0.2 10 ^3/uL Nucleated Red Blood Cells 0.2 % Sodium Level 130 L 136-145 mmol/L Potassium Level 3.7 3.5-5.1 mmol/L Chloride Level 100 98-107 mmol/L Carbon Dioxide Level 16 L 20-31 mmol/L Anion Gap 14 5-15 Blood Urea Nitrogen 43 H 9-23 mg/dL Creatinine 1.35 H 0.700-1.30 mg/dL Glomerular Filtration Rate Calc 68 >90 mL/min BUN/Creatinine Ratio 31.9 H 10.0-20.0 Serum Glucose 118 H 74-106 mg/dL Calcium Level 9.0 8.7-10.4 mg/dL Total Bilirubin 4.9 H 0.2-1.0 mg/dL Aspartate Amino Transferase (AST) 18 13-40 U/L Alanine Aminotransferase (ALT) 14 7-40 U/L Alkaline Phosphatase 161 H 46-116 U/L Total Protein 5.5 L 5.7-8.2 g/dL Albumin 3.5 3.2-4.8 g/dL Urine Color Yellow Yellow Urine Clarity Clear Clear Urine pH 5.0 5.0-9.0 Urine Specific [place] 1.022 1.001-1.035 Urine Protein Trace H Negative Urine Ketones Negative Negative Urine Blood Negative Negative /uL Urine Nitrite Negative Negative Urine Bilirubin Negative Negative Urine Urobilinogen 2 H Negative mg/dL Urine Leukocyte Esterase Negative Negative /uL Urine RBC 1 0 - 3 /hpf Urine Microscopic WBC 3 0-3 /HPF Urine Squamous Epithelial Cells Few <5 /hpf Urine Bacteria Few H None Seen /hpf Urine Glucose Normal Normal mg/dL Test 06/08/24 17:16 Range/Units B-Type Natriuretic Peptide 3831.34 0-100 pg/mL Lipase 25 12-53 U/L Microbiology Date/Time Source Procedure Growth Status 06/09/24 12:42 Blood Blood Culture - Preliminary NO GROWTH AFTER 24 HOURS OF INCUBATION. Resulted Assessment 43-year-old with chronic liver disease with ascites last status post recent paracentesis with complaints of abdominal pain nausea and abdominal distention had some small amount of vomiting of coffee-ground materials and some dark stools hypotensive on pressors Alert and oriented Clinical impression Chronic liver disease with cirrhosis and severe ascites status post paracentesis atrial fibrillation chronic heart problems and chronic liver problems with ci rrhosis Bleeding is probably from gastritis maybe some minimal variceal bleeding also can not be excluded Plan/Recommendation Patient is unstable with a little slow blood pressure we will correct the blood pressure now Since there is no gross bleeding at this time and the hemoglobin stable we will recommend to continue the Sandostatin drip as well as Protonix will get an INR Any case significant bleeding may need EGD evaluation Otherwise stabilize him and then EGD can be done when blood pressure is better and he is more stabilized. Also hasto ensure the patient does not know any blood thinners for the atrial fibrillation overall prognosis guarded long-term Plan discussed with: Patient GALE BELLA MD Jun 10, 2024 14:55
[2024-06-10 15:06] LABS: INR 1.37 (0.9-1.15); Prothrombin Time 14.1 sec (9.3-11.8)
--- NOTE | 2024-06-10 16:14 | DVHINCON2 ---
Date of service: Jun 10, 2024 Reason for Consultation Acute kidney injury History of Present Illness Patient refused to participate with interview was irritable Information obtained from nurse and reviewed medical records. Patient had paracentesis on June 08 of this year 8 L was removed. Patient had follow up with urgent care was noted to be irritable and combative when planned for additional procedures. He was transferred to the ER for acute care. His hospital course was notable for significant hypotension patient is started on pressors. Nephrology consulted for elevated creatinine level. Baseline renal function is unknown to me. Patient is currently refusing Jaeger catheter at this time even though he has some scrotal swelling. Past Medical History Liver disease with ascites Atrial fibrillation Past Surgical History Bilateral BKA Allergies: Coded Allergies: NO KNOWN ALLERGIES (Unverified , 06/08/24) Current Medications Current Medications Medications (Trade) Dose Ordered Sig/Zenia Route PRN Reason Start Time Stop Time Status Last Admin Lactulose 30 ml Q4HR PO 06/09/24 22:00 06/10/24 02:18 Octreotide Acetate 500 mcg/ Sodium Chloride 100 ml @ 10 mls/hr Q10H IV 06/10/24 13:00 06/10/24 14:02 Pantoprazole Sodium (Protonix) 40 mg BID IV 06/10/24 22:00 H&P Exam Vital Signs/I&O Vital Sign Date Time Temp Pulse Resp B/P (MAP) Pulse Ox O2 Delivery O2 Flow Rate FiO2 06/10/24 12:42 105/73 06/10/24 12:05 102 06/10/24 10:30 13 95 06/10/24 07:25 Room Air* 0 21 06/10/24 07:25 98.4 98.4 Intake and Output 06/09/24 06/10/24 19:00 07:00 Intake Total 300 ml 200 ml Output Total 950 ml Balance 300 ml -750 ml Intake IV Total 300 ml 200 ml Output Urine Total 950 ml Physical Exam Middle-aged male Decreased muscle tone Truncal distention with thin arms Elevated JVD Bilateral BKA No Jaeger minimal urinary output with frequent voids Labs/Diagnostic Data Labs/Diagnostic Data Laboratory Tests Test 06/10/24 13:39 06/10/24 11:46 06/10/24 06:40 06/10/24 06:18 Range/Units Prothrombin Time 14.1 H 9.3-11.8 sec Prothrombin Time INR 1.37 H 0.9-1.15 Ammonia 59 H 11-32 umol/L POC Glucose 101 109 H 70-106 mg/dl White Blood Count 7.6 4.4-10.8 10^3/uL Red Blood Count 4.65 4.5-5.90 10^6/uL Hemoglobin 14.8 13.5-17.5 g/dL Hematocrit 44.3 # 41.0-53.0 % Mean Corpuscular Volume 95.3 80.0-100.0 fL Mean Corpuscular Hemoglobin 31.9 28.0-32.0 pg Mean Corpuscular Hemoglobin Concent 33.4 32.0-36.0 g/dL Red Cell Distribution Width 16.9 H 11.8-14.3 % Platelet Count 226 140-450 10^3/uL Mean Platelet Volume 7.6 6.9-10.8 fL Neutrophils (%) (Auto) 75.0 37.0-80.0 % Lymphocytes (%) (Auto) 6.8 L 10.0-50.0 % Monocytes (%) (Auto) 16.6 H 0.0-12.0 % Eosinophils (%) (Auto) 1.1 0.0-7.0 % Basophils (%) (Auto) 0.5 0.0-2.0 % Neutrophils # (Auto) 5.7 1.6-8.6 10 ^3/uL Lymphocytes # (Auto) 0.5 0.4-5.4 10 ^3/uL Monocytes # (Auto) 1.3 0-1.3 10 ^3/uL Eosinophils # (Auto) 0.1 0-0.8 10 ^3/uL Basophils # (Auto) 0 0-0.2 10 ^3/uL Nucleated Red Blood Cells 0.2 % Sodium Level 130 L 136-145 mmol/L Potassium Level 3.7 3.5-5.1 mmol/L Chloride Level 100 98-107 mmol/L Carbon Dioxide Level 16 L 20-31 mmol/L Anion Gap 14 5-15 Blood Urea Nitrogen 43 H 9-23 mg/dL Creatinine 1.35 H 0.700-1.30 mg/dL Glomerular Filtration Rate Calc 68 >90 mL/min BUN/Creatinine Ratio 31.9 H 10.0-20.0 Serum Glucose 118 H 74-106 mg/dL Calcium Level 9.0 8.7-10.4 mg/dL Total Bilirubin 4.9 H 0.2-1.0 mg/dL Aspartate Amino Transferase (AST) 18 13-40 U/L Alanine Aminotransferase (ALT) 14 7-40 U/L Alkaline Phosphatase 161 H 46-116 U/L Total Protein 5.5 L 5.7-8.2 g/dL Albumin 3.5 3.2-4.8 g/dL Test 06/09/24 21:44 06/09/24 17:34 06/09/24 11:42 06/09/24 02:49 Range/Units POC Glucose 115 H 102 70-106 mg/dl Sodium Level 127 L 129 L 136-145 mmol/L Potassium Level 4.9 4.0 3.5-5.1 mmol/L Chloride Level 100 101 98-107 mmol/L Carbon Dioxide Level 14 L 16 L 20-31 mmol/L Anion Gap 13 12 5-15 Blood Urea Nitrogen 42 H 46 #H 9-23 mg/dL Creatinine 1.44 H 1.45 H 0.700-1.30 mg/dL Glomerular Filtration Rate Calc 63 62 >90 mL/min BUN/Creatinine Ratio 29.2 H 31.7 H 10.0-20.0 Serum Glucose 113 H 78 74-106 mg/dL Calcium Level 8.5 L 8.8 8.7-10.4 mg/dL Total Bilirubin 4.1 H 3.9 H 0.2-1.0 mg/dL Aspartate Amino Transferase (AST) 30 22 13-40 U/L Alanine Aminotransferase (ALT) 14 16 7-40 U/L Alkaline Phosphatase 156 H 184 H 46-116 U/L Ammonia 101 H 11-32 umol/L Total Protein 5.2 L 5.0 L 5.7-8.2 g/dL Albumin 3.3 2.7 L 3.2-4.8 g/dL White Blood Count 6.6 4.4-10.8 10^3/uL Red Blood Count 4.14 L 4.5-5.90 10^6/uL Hemoglobin 13.4 L 13.5-17.5 g/dL Hematocrit 39.2 L 41.0-53.0 % Mean Corpuscular Volume 94.7 80.0-100.0 fL Mean Corpuscular Hemoglobin 32.4 H 28.0-32.0 pg Mean Corpuscular Hemoglobin Concent 34.2 32.0-36.0 g/dL Red Cell Distribution Width 16.6 H 11.8-14.3 % Platelet Count 167 140-450 10^3/uL Mean Platelet Volume 7.6 6.9-10.8 fL Neutrophils (%) (Auto) 77.1 37.0-80.0 % Lymphocytes (%) (Auto) 6.4 L 10.0-50.0 % Monocytes (%) (Auto) 14.7 H 0.0-12.0 % Eosinophils (%) (Auto) 1.0 0.0-7.0 % Basophils (%) (Auto) 0.8 0.0-2.0 % Neutrophils # (Auto) 5.1 1.6-8.6 10 ^3/uL Lymphocytes # (Auto) 0.4 0.4-5.4 10 ^3/uL Monocytes # (Auto) 1.0 0-1.3 10 ^3/uL Eosinophils # (Auto) 0.1 0-0.8 10 ^3/uL Basophils # (Auto) 0.1 0-0.2 10 ^3/uL Nucleated Red Blood Cells 0.0 % Test 06/08/24 17:50 06/08/24 17:16 Range/Units Urine Color Yellow Yellow Urine Clarity Clear Clear Urine pH 5.0 5.0-9.0 Urine Specific [place] 1.022 1.001-1.035 Urine Protein Trace H Negative Urine Ketones Negative Negative Urine Blood Negative Negative /uL Urine Nitrite Negative Negative Urine Bilirubin Negative Negative Urine Urobilinogen 2 H Negative mg/dL Urine Leukocyte Esterase Negative Negative /uL Urine RBC 1 0 - 3 /hpf Urine Microscopic WBC 3 0-3 /HPF Urine Squamous Epithelial Cells Few <5 /hpf Urine Bacteria Few H None Seen /hpf Urine Glucose Normal Normal mg/dL White Blood Count 7.2 4.4-10.8 10^3/uL Red Blood Count 4.43 L 4.5-5.90 10^6/uL Hemoglobin 14.2 13.5-17.5 g/dL Hematocrit 42.1 41.0-53.0 % Mean Corpuscular Volume 94.9 80.0-100.0 fL Mean Corpuscular Hemoglobin 32.1 H 28.0-32.0 pg Mean Corpuscular Hemoglobin Concent 33.8 32.0-36.0 g/dL Red Cell Distribution Width 16.8 H 11.8-14.3 % Platelet Count 209 140-450 10^3/uL Mean Platelet Volume 7.4 6.9-10.8 fL Neutrophils (%) (Auto) 78.2 37.0-80.0 % Lymphocytes (%) (Auto) 5.4 L 10.0-50.0 % Monocytes (%) (Auto) 15.0 H 0.0-12.0 % Eosinophils (%) (Auto) 0.8 0.0-7.0 % Basophils (%) (Auto) 0.6 0.0-2.0 % Neutrophils # (Auto) 5.7 1.6-8.6 10 ^3/uL Lymphocytes # (Auto) 0.4 0.4-5.4 10 ^3/uL Monocytes # (Auto) 1.1 0-1.3 10 ^3/uL Eosinophils # (Auto) 0.1 0-0.8 10 ^3/uL Basophils # (Auto) 0 0-0.2 10 ^3/uL Nucleated Red Blood Cells 0.2 % Sodium Level 129 L 136-145 mmol/L Potassium Level 4.5 3.5-5.1 mmol/L Chloride Level 99 98-107 mmol/L Carbon Dioxide Level 21 20-31 mmol/L Anion Gap 9 5-15 Blood Urea Nitrogen 63 H 9-23 mg/dL Creatinine 1.71 H 0.700-1.30 mg/dL Glomerular Filtration Rate Calc 51 >90 mL/min BUN/Creatinine Ratio 36.8 H 10.0-20.0 Serum Glucose 73 L 74-106 mg/dL Calcium Level 8.9 8.7-10.4 mg/dL Total Bilirubin 3.4 H 0.2-1.0 mg/dL Aspartate Amino Transferase (AST) 26 13-40 U/L Alanine Aminotransferase (ALT) 21 7-40 U/L Alkaline Phosphatase 216 H 46-116 U/L B-Type Natriuretic Peptide 3831.34 0-100 pg/mL Total Protein 5.1 L 5.7-8.2 g/dL Albumin 2.7 L 3.2-4.8 g/dL Lipase 25 12-53 U/L Assessment Acute kidney injury suspect prerenal disease in the setting of hypotension and decreased renal perfusion Chronic kidney disease baseline is unknown Cirrhosis with ascites Hepatic encephalopathy Hypotension Metabolic acidosis shock Peripheral vascular disease with bilateral BKA Recommend obtain complete abdominal ultrasound rule out obstruction Patient is urinate multiple times in the urinal with very low volume indicating a high possibility of obstruction. Jaeger catheter recommended however patient has been refusing Strict Is&Os Agree with IV albumin Levophed to maintain mean arterial pressure greater than 65 Patient had episode of emesis this a.m. per ER nurse currently not receiving p.o. Pending paracentesis Currently on lactulose Sodium bicarbonate Guarded prognosis, critically ill Critical care time spent 30 minutes Plan discussed with: Patient PEBBLESBrookeSABIHA MD Jun 10, 2024 16:14
[2024-06-10] MEDS: SODIUM BICARB 8.4% 50Meq/50ml SYR Vial IV ONE (17:11)
--- NOTE | 2024-06-10 17:27 | DVH ---
COMPLETE ABDOMINAL ULTRASOUND HISTORY: ascites and CKD, r/o obstruction too TECHNIQUE: Grayscale and color-flow Doppler ultrasound examination of the abdomen was performed. COMPARISON: None Findings: Liver measures 14.3 cm in length with heterogeneous echotexture and nodular contours. No evidence of solid or cystic hepatic lesions, or intrahepatic ductal dilatation. Common bile duct measures 0.9 cm in diameter. No evidence of perihepatic free fluid noted. Normal hepatopedal flow within the portal v ein. Moderate volume ascites in all 4 quadrants. Gallbladder wall is within normal limits measuring 0.4 cm in thickness. No evidence of biliary sludge , shadowing calculi or pericholecystic fluid. Negative sonographic Vanessa's sign. Pancreas not well visualized. Spleen appears within normal limits measuring 11.0 cm with homogenous echotexture and normal contours . Right kidney measures 11.6 cm. Left kidney measures 10.8 cm. Normal renal contours, increased echotex ture and normal cortical thickness bilaterally. No evidence of hydronephrosis, nephrolithiasis, cysti c or solid renal lesions. Abdominal aorta not well visualized. Partially visualized inferior vena cava is grossly unremarkable with normal flow on color Doppler imaging. Impression: 1. No acute abdominal abnormalities. 2. Coarsened echotexture with nodular hepatic contour. Correlate for cirrhosis. 3. Moderate volume ascites. 4. Gallbladder wall thickening without evidence of acute cholecystitis. 5. Increased echogenicity of bilateral kidneys. Correlate for medical renal disease. 6. Dilated common bile duct measuring 0.9 cm in diameter.
--- NOTE | 2024-06-10 17:30 | DVHPN2 ---
Progress Note - Dictate Date Seen: Jun 10, 2024 Medical Necessity Reason Pt with a Central, PICC or Fol: No Subjective Patient was seen and evaluated in follow-up. Patient had one episode of coffee ground emesis and melena. Patient is refusing p.o. medications. Echocardiogram showed the left Ventricle is mildly dilated. There is normal left ventricular wall thickness. The left ventricle function is severely reduced, LVEF < 20%. Global hypokinesis. CO2 16, BUN 43, SALES REP 1.35. Telemetry reviewed. vital signs Vital Sign Date Time Temp Pulse Resp B/P (MAP) Pulse Ox O2 Delivery O2 Flow Rate FiO2 06/10/24 12:42 105/73 06/10/24 12:05 102 06/10/24 10:30 13 95 06/10/24 07:25 Room Air* 0 21 06/10/24 07:25 98.4 98.4 Total Intake and Output 06/09/24 06/09/24 06/10/24 14:59 22:59 06:59 Intake Total 100 ml 200 ml 200 ml Output Total 400 ml 550 ml Balance 100 ml -200 ml -350 ml medications Current Medications Medications Dose Ordered Sig/Zenia Route Start Time Stop Time Status Last Admin Dose Admin Carvedilol 3.125 mg Q12HR PO 06/09/24 10:00 06/09/24 10:11 3.125 MG Piperacillin Sod/ Tazobactam Sod 100 ml @ 25 mls/hr Q8HR IV 06/09/24 06:00 06/10/24 05:54 25 MLS/HR Diagnostic Test (Pha) 1 strip ACHS 06/09/24 07:00 06/10/24 11:48 1 STRIP Insulin Human Regular ACHS SC 06/09/24 07:00 Dextrose 50 ml UD PRN IV 06/09/24 01:00 Sodium Chloride 10 ml Q8HR IV 06/09/24 06:00 06/10/24 06:10 10 ML Acetaminophen/ Hydrocodone Bitart 1 tab Q4HP PRN PO 06/09/24 01:00 06/09/24 22:51 1 TAB Ondansetron HCl 4 mg Q4HP PRN IV 06/09/24 01:00 Docusate Sodium 100 mg BIDPRN PRN PO 06/09/24 01:00 Nitroglycerin 0.4 mg Q5MINP PRN SL 06/09/24 01:00 Morphine Sulfate 2 mg Q30M PRN IV 06/09/24 01:00 Norepinephrine Bitartrate 250 ml @ 3.75 mls/hr Q24H IV 06/09/24 04:15 06/10/24 10:05 22.5 MLS/HR Midodrine 10 mg TID@0600,1200,1800 PO 06/09/24 07:30 06/10/24 05:54 10 MG Lactulose 30 ml Q4HR PO 06/09/24 22:00 06/10/24 02:18 30 ML Octreotide Acetate 500 mcg/ Sodium Chloride 100 ml @ 10 mls/hr Q10H IV 06/10/24 13:00 Pantoprazole Sodium 40 mg BID IV 06/10/24 22:00 objective GENERAL: Awake, alert, oriented. LUNGS: Clear. CARDIOVASCULAR: Heart sounds are good. ABDOMEN: Distended. laboratory and microbiology Laboratory Tests 06/10/24 06:18 Test 06/10/24 06:18 Range/Units Serum Glucose 118 H 74-106 mg/dL Problem List Atrial fibrillation. Atrial fibrillation with ascites. Hyponatremia. Generalized weakness. Acute exacerbation of congestive heart failure. Assessment/Plan Continued all current supportive medical care. [place] for pain management. Coreg. Morphine for pain management. Protonix drip. Additional plan as per the hospital course. Plan discussed with: Patient ARNOLD BAUTISTA MD Jun 10, 2024 13:47
[2024-06-10 20:10] VITALS: PULSE 111; RESP 15; O2SAT 92
[2024-06-10] MEDS: SODIUM CHLORIDE 0.9% 250 ML IV ONE (22:00)
[2024-06-10] MEDS ORDERED: PANTOPRAZOLE 40 MG/10 ML VIAL INJ IV SCH (22:00)
[2024-06-10] MEDS: PANTOPRAZOLE 40 MG/10 ML VIAL INJ IV SCH (22:31)
[2024-06-10] MEDS: ALBUMIN 25% 100 ML IV SCH (22:33)
[2024-06-10] MEDS: fentaNYL CITRATE 100 MCG/2 ML VL IV ONE (22:34)
--- NOTE | 2024-06-10 22:59 | DVHINCON2 ---
Date of service: Jun 10, 2024 Referring Physician Vinnie Ross NP Reason for Consultation Ascites, need for paracentesis. History of Present Illness 43-year-old man with past medical history of CHF, AFib, diabetes, and liver disease who presented to ED on 06/09/24 for evaluation of abdominal distention. Per EMS, patient was at [facility] urgent care, goes every 2 weeks for paracentesis; his BP was low, was combative, did not allow urgent care to assist him and EMS were called. When EMS arrived on the scene, patient's BP was 96/64, c/o abdominal distension and rectal pain. ED workup showed WBC 7.2, platelets 209, sodium 129, potassium 4.5, BUN 63, creatinine 1.71, GFR 51, glucose 73, albumin 2.7, protein 5.1, total bilirubin 3.4, BNP 3831.34. Of note, he had paracentesis on 06/08/24 when 8 L was removed. Patient was admitted for further care and pulmonary consultation is requested for evaluation and management due to the above findings. Review of Systems: 14-point review of systems negative unless otherwise noted above. Past Medical History: CHF, DM, Liver Disease, Atrial fibrillation Past Surgical History: None Medications: Reviewed. Allergies: No known drug allergies. Family History: No family history of premature CAD. No family history of lung disorders. Social History: Nonsmoker. No alcohol or illicit drug use. Allergies: Coded Allergies: NO KNOWN ALLERGIES (Unverified , 06/08/24) Current Medications Current Medications Medications (Trade) Dose Ordered Sig/Zenia Route PRN Reason Start Time Stop Time Status Last Admin Octreotide Acetate 500 mcg/ Sodium Chloride 100 ml @ 10 mls/hr Q10H IV 06/10/24 13:00 06/10/24 14:02 Pantoprazole Sodium (Protonix) 40 mg BID IV 06/10/24 22:00 06/10/24 22:03 DC Sodium Bicarbonate 650 mg TID PO 06/11/24 06:00 Pantoprazole Sodium (Protonix) 40 mg BID IV 06/10/24 22:00 06/10/24 22:31 Albumin Human 100 ml @ 100 mls/hr Q8H IV 06/10/24 22:00 06/11/24 14:59 06/10/24 22:33 Vital Signs Vital Signs Date Time Temp Pulse Resp B/P (MAP) Pulse Ox O2 Delivery O2 Flow Rate FiO2 06/10/24 22:35 135 88/58 06/10/24 19:30 12 95 06/10/24 07:25 Room Air* 0 21 06/10/24 07:25 98.4 98.4 Physical Exam Gen.: Patient lying in bed in no apparent distress. Breathing on room air. Head: Normocephalic, atraumatic. Eyes: EOMI/PERRLA. Ears: Normal hearing. Normal anatomy. Neck/trachea: Trachea midline, supple. Nose: Normal external anatomy. Mouth: Moist mucous membranes. Chest: Decreased air entry bilaterally. No wheezing or rhonchi. Cardiovascular: Positive S1, positive S2. Regular rate and rhythm. Abdomen: Positive bowel sounds in all 4 quadrants. Soft, non-tender, non- distended. : Deferred. Rectal: Deferred. Skin: Warm, dry. Intact. Extremities: 2+ radial pulses bilaterally. No lower extremity edema. Neuro: Awake, alert, oriented x3. No gross motor or sensory deficits. Cranial nerves II through XII intact. Gait not assessed. Labs/Diagnostic Data Labs Test 06/10/24 22:37 06/10/24 13:39 06/10/24 06:18 06/08/24 17:50 Range/Units POC Glucose 105 70-106 mg/dl Prothrombin Time 14.1 H 9.3-11.8 sec Prothrombin Time INR 1.37 H 0.9-1.15 Ammonia 59 H 11-32 umol/L White Blood Count 7.6 4.4-10.8 10^3/uL Red Blood Count 4.65 4.5-5.90 10^6/uL Hemoglobin 14.8 13.5-17.5 g/dL Hematocrit 44.3 # 41.0-53.0 % Mean Corpuscular Volume 95.3 80.0-100.0 fL Mean Corpuscular Hemoglobin 31.9 28.0-32.0 pg Mean Corpuscular Hemoglobin Concent 33.4 32.0-36.0 g/dL Red Cell Distribution Width 16.9 H 11.8-14.3 % Platelet Count 226 140-450 10^3/uL Mean Platelet Volume 7.6 6.9-10.8 fL Neutrophils (%) (Auto) 75.0 37.0-80.0 % Lymphocytes (%) (Auto) 6.8 L 10.0-50.0 % Monocytes (%) (Auto) 16.6 H 0.0-12.0 % Eosinophils (%) (Auto) 1.1 0.0-7.0 % Basophils (%) (Auto) 0.5 0.0-2.0 % Neutrophils # (Auto) 5.7 1.6-8.6 10 ^3/uL Lymphocytes # (Auto) 0.5 0.4-5.4 10 ^3/uL Monocytes # (Auto) 1.3 0-1.3 10 ^3/uL Eosinophils # (Auto) 0.1 0-0.8 10 ^3/uL Basophils # (Auto) 0 0-0.2 10 ^3/uL Nucleated Red Blood Cells 0.2 % Sodium Level 130 L 136-145 mmol/L Potassium Level 3.7 3.5-5.1 mmol/L Chloride Level 100 98-107 mmol/L Carbon Dioxide Level 16 L 20-31 mmol/L Anion Gap 14 5-15 Blood Urea Nitrogen 43 H 9-23 mg/dL Creatinine 1.35 H 0.700-1.30 mg/dL Glomerular Filtration Rate Calc 68 >90 mL/min BUN/Creatinine Ratio 31.9 H 10.0-20.0 Serum Glucose 118 H 74-106 mg/dL Calcium Level 9.0 8.7-10.4 mg/dL Total Bilirubin 4.9 H 0.2-1.0 mg/dL Aspartate Amino Transferase (AST) 18 13-40 U/L Alanine Aminotransferase (ALT) 14 7-40 U/L Alkaline Phosphatase 161 H 46-116 U/L Total Protein 5.5 L 5.7-8.2 g/dL Albumin 3.5 3.2-4.8 g/dL Urine Color Yellow Yellow Urine Clarity Clear Clear Urine pH 5.0 5.0-9.0 Urine Specific [place] 1.022 1.001-1.035 Urine Protein Trace H Negative Urine Ketones Negative Negative Urine Blood Negative Negative /uL Urine Nitrite Negative Negative Urine Bilirubin Negative Negative Urine Urobilinogen 2 H Negative mg/dL Urine Leukocyte Esterase Negative Negative /uL Urine RBC 1 0 - 3 /hpf Urine Microscopic WBC 3 0-3 /HPF Urine Squamous Epithelial Cells Few <5 /hpf Urine Bacteria Few H None Seen /hpf Urine Glucose Normal Normal mg/dL Test 06/08/24 17:16 Range/Units B-Type Natriuretic Peptide 3831.34 0-100 pg/mL Lipase 25 12-53 U/L Microbiology Date/Time Source Procedure Growth Status 06/09/24 12:42 Blood Blood Culture - Preliminary NO GROWTH AFTER 24 HOURS OF INCUBATION. Resulted Assessment Impression: Ascites Cirrhosis of liver Hepatic encephalopathy Elevated ammonia Acute kidney injury Obesity, BMI 31 Plan: Supplemental oxygen PRN Titrate to keep O2 sats above 92%. Patient refusing Lasix/Aldactone Low blood pressure- monitor closely. Continue antibiotics Follow up Echo Cardiology recs appreciated. Limited abdominal ultrasound performed, reveals moderate volume ascites. Obtain consent for paracentesis. Monitor renal function. Monitor electrolytes. Supplement as necessary. Monitor ins and outs. Diet and lifestyle modifications for weight reduction Obesity - complicates all care DVT prophylaxis. Prognosis: Poor given patient's multiple co-morbidities. Condition: Critical Rest of plan per hospitalist and other consultants. A total of 35 minutes of critical care time was spent reviewing the patient record, examining the patient, making a diagnostic and therapeutic plan, discussing this plan with the medical personnel, following up on diagnostic studies and following the patient for clinical stability excluding any and all procedures. At least 50% of this time was spent in direct, [id number] contact. Thank you, YAZ Ross, for allowing me to participate in this patient's care. Further recommendations will depend on the patient's clinical course. Please do not hesitate to contact me if you have any questions or concerns. This medical document was created using an electronic medical record system with [employer] computerized dictation system. Although these documentations are being carefully reviewed, there may still be some phonetic and typographical changes. The errors are purely typographical, due to imperfection on the software program, and do not reflect any compromise in the patient's medical care. Plan discussed with: Patient, Other (RN/YAZ Ross/) VARUN HERMAN MD Jun 10, 2024 22:59
[2024-06-10] MEDS: SODIUM CHLORIDE 0.9% 500 ML IV ONE (23:49)
[2024-06-11 04:00] LABS: Chloride 101 mmol/L (98-107); Potassium 3.6 mmol/L (3.5-5.1)
[2024-06-11 04:01] LABS: Anion Gap 13 (5-15); Carbon Dioxide 20 mmol/L (20-31)
[2024-06-11 04:06] LABS: BUN/Creatinine Ratio 35.5 (10.0-20.0); Glucose 105 mg/dL (74-106)
[2024-06-11 04:16] LABS: Blood Urea Nitrogen 43 mg/dL (9-23); Sodium 134 mmol/L (136-145)
[2024-06-11] MEDS: ALBUMIN 5% 250 ML IV ONE (05:10)
[2024-06-11] MEDS: SODIUM BICARBONATE 650 MG TAB PO SCH ×2 (06:17→23:14)
[2024-06-11 08:09] VITALS: RESP 15
--- NOTE | 2024-06-11 11:09 | DVHPN2 ---
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 He denies abdominal pain, nausea, vomiting. He is A&O x2, not oriented to date or time. He denies history of alcoholism/smoking or hepatitis. Her paracentesis at the urgent care recently varicose every 2 weeks for paracentesis. Patient seen and examined in the ER. Abdomen is distended but nontender. A&O x2 scheduled for EGD tomorrow. NPO starting midnight. Objective vital signs Vital Sign Date Time Temp Pulse Resp B/P (MAP) Pulse Ox O2 Delivery O2 Flow Rate FiO2 06/11/24 10:50 132 83/57 06/11/24 08:30 17 06/11/24 08:15 92 06/11/24 08:09 Room Air* 0 21 06/11/24 06:00 98.2 98.2 Total Intake and Output 06/10/24 06/10/24 06/11/24 15:00 23:00 07:00 Intake Total 140.00 ml 280.00 ml 780.93 ml Balance 140.00 ml 280.00 ml 780.93 ml medications Current Medications Medications Dose Ordered Sig/Zenia Route Start Time Stop Time Status Last Admin Dose Admin Piperacillin Sod/ Tazobactam Sod 100 ml @ 25 mls/hr Q8HR IV 06/09/24 06:00 06/11/24 06:18 25 MLS/HR Diagnostic Test (Pha) 1 strip ACHS 06/09/24 07:00 06/10/24 22:00 1 STRIP Insulin Human Regular ACHS SC 06/09/24 07:00 Dextrose 50 ml UD PRN IV 06/09/24 01:00 Sodium Chloride 10 ml Q8HR IV 06/09/24 06:00 06/10/24 22:39 10 ML Ondansetron HCl 4 mg Q4HP PRN IV 06/09/24 01:00 Docusate Sodium 100 mg BIDPRN PRN PO 06/09/24 01:00 Norepinephrine Bitartrate 250 ml @ 3.75 mls/hr Q24H IV 06/09/24 04:15 06/11/24 05:00 15 MLS/HR Midodrine 10 mg TID@0600,1200,1800 PO 06/09/24 07:30 06/11/24 06:17 10 MG Lactulose 30 ml Q4HR PO 06/09/24 22:00 06/10/24 02:18 30 ML Octreotide Acetate 500 mcg/ Sodium Chloride 100 ml @ 10 mls/hr Q10H IV 06/10/24 13:00 06/11/24 09:02 10 MLS/HR Sodium Bicarbonate 650 mg TID PO 06/11/24 06:00 06/11/24 06:17 650 MG Pantoprazole Sodium 40 mg BID IV 06/10/24 22:00 06/11/24 10:49 40 MG Albumin Human 100 ml @ 100 mls/hr Q8H IV 06/10/24 22:00 06/11/24 14:59 06/10/24 22:33 100 MLS/HR Examination Patient lying in bed, in no acute distress General: Overweight, afebrile, palor, mucosae are moist Cardiovascular: Regular S1 and S2. No murmurs, gallops or rubs. No JVD elevation. No pedal edema Respiratory: Normal B/L air entry on room air. Clear lung sounds on auscultation Abdomen: Soft, nontender, distended normoactive bowel sounds, no rebound tenderness, no organomegaly, no masses Genitourinary: Deferred MSK/skin: Mobilizes 4 limbs. Skin is dry and warm Neurological: No motor, no sensitive deficits, normal speech. Pupils are isocoric and reactive. Psych/Mental Status: A/Ox2, not to time or date laboratory and microbiology Laboratory Tests 06/11/24 03:25 06/10/24 06:18 Test 06/11/24 03:25 Range/Units Serum Glucose 105 74-106 mg/dL Microbiology Date/Time Source Procedure Growth Status 06/09/24 12:42 Blood Blood Culture - Preliminary NO GROWTH AFTER 24 HOURS OF INCUBATION. Resulted Labs and/or images reviewed: Labs reviewed by me, Image(s) reviewed by me Problem List/Assessment/Plan Problem List/Assessment/Plan Cirrhosis with moderate ascites - negative Hepatitis studies Likely upper GI bleeding Transaminitis secondary to above Direct bilirubinemia secondary to ?cholestasis Congestive heart failure Acute kidney injury likely vasomotor Plan: Given the upper GI bleeding which is resolved, history of cirrhosis and ascites, patient will be scheduled for upper EGD 06/12/2024. NPO starting midnight. We will consider MRCP given the patient has hyperbilirubinemia and elevated ALP and liver ultrasound showing gallbladder wall thickening without evidence of acute cholecystitis. Dilated Cbd 0.9 cm. Discontinue octreotide given the patient is not actively bleeding Patient is scheduled for paracentesis. Start low-salt diet afterwards. NPO starting midnight Continue pantoprazole 40 mg IV b.i.d. Continue lactulose and target 2-3 BMs per day Plan discussed with patient in which all questions have been answered Case discussed with Dr. Castillo Plan discussed with: Patient My Orders My Orders Orders - REJI MANZANARES Procedure Category Date Status Time Hepatic Panel LAB 06/11/24 Logged 11:04 Ammonia LAB 06/11/24 Logged 11:04 REJI MANZANARES Jun 11, 2024 11:09
[2024-06-11 12:47] LABS: Hepatitis B Surface Antigen Negative (Negative)
[2024-06-11 12:59] LABS: Hepatitis C Antibody Negative (Negative)
[2024-06-11 13:34] LABS: INR 1.36 (0.9-1.15); Partial Thromboplastin Time 34.4 SEC (24.5-34.5)
[2024-06-11 14:21] LABS: Albumin 3.3 g/dL (3.2-4.8)
[2024-06-11 14:23] LABS: Bilirubin, Direct 2.6 mg/dL (<0.3); Bilirubin, Total 4.8 mg/dL (0.2-1.0)
--- NOTE | 2024-06-11 15:33 | DVHPN2 ---
Progress Note Date Seen: Jun 11, 2024 Medical Necessity Reason Pt with a Central, PICC or Fol: No Subjective Patient reports: Other (Patient seen in emergency room with RN bedside) Review of Systems: Deferred Objective vital signs Vital Sign Date Time Temp Pulse Resp B/P (MAP) Pulse Ox O2 Delivery O2 Flow Rate FiO2 06/11/24 14:00 99 19 86/53 (64) 87 06/11/24 12:00 98.2 98.2 06/11/24 08:09 Room Air* 0 21 Total Intake and Output 06/10/24 06/10/24 06/11/24 15:00 23:00 07:00 Intake Total 140.00 ml 280.00 ml 780.93 ml Balance 140.00 ml 280.00 ml 780.93 ml medications Current Medications Medications Dose Ordered Sig/Zenia Route Start Time Stop Time Status Last Admin Dose Admin Piperacillin Sod/ Tazobactam Sod 100 ml @ 25 mls/hr Q8HR IV 06/09/24 06:00 06/11/24 14:48 25 MLS/HR Diagnostic Test (Pha) 1 strip ACHS 06/09/24 07:00 06/10/24 22:00 1 STRIP Insulin Human Regular ACHS SC 06/09/24 07:00 Dextrose 50 ml UD PRN IV 06/09/24 01:00 Sodium Chloride 10 ml Q8HR IV 06/09/24 06:00 06/11/24 14:30 10 ML Ondansetron HCl 4 mg Q4HP PRN IV 06/09/24 01:00 Docusate Sodium 100 mg BIDPRN PRN PO 06/09/24 01:00 Norepinephrine Bitartrate 250 ml @ 3.75 mls/hr Q24H IV 06/09/24 04:15 06/11/24 05:00 15 MLS/HR Midodrine 10 mg TID@0600,1200,1800 PO 06/09/24 07:30 06/11/24 12:30 10 MG Lactulose 30 ml Q4HR PO 06/09/24 22:00 06/10/24 02:18 30 ML Sodium Bicarbonate 650 mg TID PO 06/11/24 06:00 06/11/24 14:42 650 MG Pantoprazole Sodium 40 mg BID IV 06/10/24 22:00 06/11/24 10:49 40 MG Examination: GENERAL:Abnormal, NECK:Normal, LUNGS:Abnormal, MSK:Abnormal, SKIN:Abnormal, NEURO:Normal laboratory and microbiology Laboratory Tests 06/11/24 03:25 06/10/24 06:18 Test 06/11/24 03:25 Range/Units Serum Glucose 105 74-106 mg/dL Microbiology Date/Time Source Procedure Growth Status 06/09/24 12:42 Blood Blood Culture - Preliminary NO GROWTH AFTER 48 HOURS OF INCUBATION. Resulted Problem List/Assessment/Plan Problem List/Assessment/Plan Acute kidney injury suspect prerenal disease in the setting of hypotension and decreased renal perfusion Chronic kidney disease baseline is unknown Cirrhosis with ascites Hepatic encephalopathy Hypotension Metabolic acidosis shock Peripheral vascular disease with bilateral BKA Recommendations Patient currently on Levophed and Sandostatin drip Renal function significantly better since admission Patient remains nonoliguric Ultrasound no hydronephrosis Plan discussed with: Patient SALAZAR KLINE MD Jun 11, 2024 15:33
--- NOTE | 2024-06-11 18:33 | DVHPN2 ---
Progress Note - Dictate Date Seen: Jun 11, 2024 Medical Necessity Reason Pt with a Central, PICC or Fol: No Subjective Patient was seen and evaluated in follow up. Patient is complaining of abdominal pain, distention and nausea. The patient is scheduled fro EGD tomorrow. Patient is cardiac clear for procedure. BUN 43, T bili 4.8. vital signs Vital Sign Date Time Temp Pulse Resp B/P (MAP) Pulse Ox O2 Delivery O2 Flow Rate FiO2 06/11/24 18:15 94 13 87/54 (65) 90 06/11/24 12:00 98.2 98.2 06/11/24 08:09 Room Air* 0 21 Total Intake and Output 06/10/24 06/10/24 06/11/24 15:00 23:00 07:00 Intake Total 140.00 ml 280.00 ml 780.93 ml Balance 140.00 ml 280.00 ml 780.93 ml medications Current Medications Medications Dose Ordered Sig/Zenia Route Start Time Stop Time Status Last Admin Dose Admin Piperacillin Sod/ Tazobactam Sod 100 ml @ 25 mls/hr Q8HR IV 06/09/24 06:00 06/11/24 14:48 25 MLS/HR Diagnostic Test (Pha) 1 strip ACHS 06/09/24 07:00 06/10/24 22:00 1 STRIP Insulin Human Regular ACHS SC 06/09/24 07:00 Dextrose 50 ml UD PRN IV 06/09/24 01:00 Sodium Chloride 10 ml Q8HR IV 06/09/24 06:00 06/11/24 14:30 10 ML Ondansetron HCl 4 mg Q4HP PRN IV 06/09/24 01:00 Docusate Sodium 100 mg BIDPRN PRN PO 06/09/24 01:00 Norepinephrine Bitartrate 250 ml @ 3.75 mls/hr Q24H IV 06/09/24 04:15 06/11/24 05:00 15 MLS/HR Midodrine 10 mg TID@0600,1200,1800 PO 06/09/24 07:30 06/11/24 18:15 10 MG Pantoprazole Sodium 40 mg BID IV 06/10/24 22:00 06/11/24 10:49 40 MG Lactulose 30 ml TID PO 06/11/24 22:00 Sodium Bicarbonate 650 mg BID PO 06/11/24 22:00 objective GENERAL: Awake, alert, oriented. LUNGS: Clear. CARDIOVASCULAR: Heart sounds are good. ABDOMEN: Distended. laboratory and microbiology Laboratory Tests 06/11/24 03:25 06/10/24 06:18 Test 06/11/24 03:25 Range/Units Serum Glucose 105 74-106 mg/dL Problem List Atrial fibrillation. Atrial fibrillation with ascites. Hyponatremia. Generalized weakness. Acute exacerbation of congestive heart failure. Assessment/Plan Continued all current supportive medical care. Lactulose. Midodrine. Vasopressors for hemodynamic support. IV antibiotics as ordered. Additional plan as per the hospital course. Critical care time of 45 minutes provided to include time spent evaluation of patient at bedside, when appropriate patient/family education for diagnosis, treatment plan, review of pertinent medical information and discussion of care with specialty providers and PCP. Plan discussed with: Patient ARNOLD BAUTISTA MD Jun 11, 2024 18:33
--- NOTE | 2024-06-11 22:12 | DVHPNRES ---
Progress Note Date Seen: Jun 11, 2024 Resident Creating Document: RONEY BECK RESIDENT Medical Necessity Reason Pt with a Central, PICC or Fol: No Subjective Review of Systems pt seen and examined at bedside mentions of no active complaints, is hungry and wants to eat food currently on Norepinephrine drip Objective vital signs Vital Sign Date Time Temp Pulse Resp B/P (MAP) Pulse Ox O2 Delivery O2 Flow Rate FiO2 06/11/24 20:15 90 12 77/52 (60) 87 06/11/24 12:00 98.2 98.2 06/11/24 08:09 Room Air* 0 21 Total Intake and Output 06/10/24 06/10/24 06/11/24 15:00 23:00 07:00 Intake Total 140.00 ml 280.00 ml 780.93 ml Balance 140.00 ml 280.00 ml 780.93 ml medications Current Medications Medications Dose Ordered Sig/Zenia Route Start Time Stop Time Status Last Admin Dose Admin Piperacillin Sod/ Tazobactam Sod 100 ml @ 25 mls/hr Q8HR IV 06/09/24 06:00 06/11/24 14:48 25 MLS/HR Diagnostic Test (Pha) 1 strip ACHS 06/09/24 07:00 06/10/24 22:00 1 STRIP Insulin Human Regular ACHS SC 06/09/24 07:00 Dextrose 50 ml UD PRN IV 06/09/24 01:00 Sodium Chloride 10 ml Q8HR IV 06/09/24 06:00 06/11/24 14:30 10 ML Ondansetron HCl 4 mg Q4HP PRN IV 06/09/24 01:00 Docusate Sodium 100 mg BIDPRN PRN PO 06/09/24 01:00 Norepinephrine Bitartrate 250 ml @ 3.75 mls/hr Q24H IV 06/09/24 04:15 06/11/24 05:00 15 MLS/HR Midodrine 10 mg TID@0600,1200,1800 PO 06/09/24 07:30 06/11/24 18:15 10 MG Pantoprazole Sodium 40 mg BID IV 06/10/24 22:00 06/11/24 10:49 40 MG Lactulose 30 ml TID PO 06/11/24 22:00 Sodium Bicarbonate 650 mg BID PO 06/11/24 22:00 Examination Examination General Appearance: Alert, Oriented X3, Cooperative, HEENT: EOMI Respiratory: Clear to auscultation, Normal air movement Cardiovascular: Regular rate, Normal S1, Normal S2 Abdominal: Abdominal distention Extremities: Bilateral above-knee amputation present on admission Skin: Sacral ulcer stage 1/2 Neuro: Normal speech and tone Mild drowsiness laboratory and microbiology Laboratory Tests 06/11/24 03:25 06/10/24 06:18 Test 06/11/24 03:25 Range/Units Serum Glucose 105 74-106 mg/dL Microbiology Date/Time Source Procedure Growth Status 06/09/24 12:42 Blood Blood Culture - Preliminary NO GROWTH AFTER 48 HOURS OF INCUBATION. Resulted Problem List/Assessment/Plan Problem List/Assessment/Plan Assessment/plan Neurology # hepatic encephalopathy stage 0-1 -currently NPO, we will start lactulose once cleared by the GI Ammonia levels Cardiology # shock likely Septic/cardiogenic -currently on norepinephrine Target map of 60 and systolic of 90 #? Acute heart failure with reduced ejection fraction -last echo showed ejection fraction of less than 20% with global hypokinesis and RA dilation # [id number] TR -seen on last echo # atrial fibrillation -avoid anticoagulation because of GI bleeding #Peripheral vascular disease with bilateral BKA POA -hold antiplatelets considering GI bleed Resp GI # large volume ascites status post paracentesis due to liver cirrhosis -paracentesis done around 8 L were removed # GI bleed, likely upper GI bleed -NPO IV Protonix 40 mg b.i.d. Octreotide drip discontinued by GI Plan upper GI endoscopy in the a.m. # decompensated liver cirrhosis -likely due to alcohol use disorder -hepatitis panel # transaminitis with hyperbilirubinemia likely due to liver cirrhosis Monitor # Gallbladder wall thickening without evidence of acute cholecystitis. -seen on liver [facility] Endocrine # diabetes mellitus type 2 -sliding scale insulin Hematology/oncology Nephrology # hyponatremia likely due to hypervolemia due to liver cirrhosis -monitor #Acute kidney injury due to VMN suspect prerenal disease in the setting of hypotension and decreased renal perfusion ?Chronic kidney disease baseline is unknown -nephrology on board -monitor Dermatology #Sacral Ulcer POA -wound care DVT prophylaxis on hold because of GI bleed PUD prophylaxis IV protonix BID Nutrition clear liquid diet NPO after midnight Bowel Regimen on hold as patient has gi bleed Lines Drips Norepinephrine Code status discussed with the patient for >21 min, FULL CODE Critical care time excluding procedures 87 minutes Case discussion with Dr orantes Plan discussed with: Other My Orders My Orders Orders - RONEY BECK Procedure Category Date Status Time Communication Order ORDERS 06/11/24 Transmitted 12:00 Date of Service: Jun 11, 2024 Billing Provider: BAM ORANTES MD Common Visit Codes: 21391-PCTQUMBK CARE 30-74 MIN, 88374-ADTDUAVV CARE-EACH +30MIN RONEY BECK Jun 11, 2024 22:12 BAM ORANTES MD Jun 12, 2024 14:20
[2024-06-11] MEDS: LACTULOSE 20Gm/30ML SOLN PO SCH (23:13)
[2024-06-12 05:21] LABS: Basophils # (auto) 0.1 10 ^3/uL (0-0.2); Eosinophils # (auto) 0.2 10 ^3/uL (0-0.8); Eosinophils % (auto) 2.1 % (0.0-7.0); Hematocrit 39.6 % (41.0-53.0); Hemoglobin 13.5 g/dL (13.5-17.5); Lymphocytes # (auto) 0.7 10 ^3/uL (0.4-5.4); Lymphocytes % (auto) 9.8 % (10.0-50.0); Mean Corpuscular Hemoglobin 32.5 pg (28.0-32.0); Mean Corpuscular Hgb Conc. 34.2 g/dL (32.0-36.0); Mean Corpuscular Volume 95.1 fL (80.0-100.0); Monocytes # (auto) 1.1 10 ^3/uL (0-1.3); Monocytes % (auto) 15.5 % (0.0-12.0); Neutrophils # (auto) 5.3 10 ^3/uL (1.6-8.6); Neutrophils % (auto) 71.6 % (37.0-80.0); Nucleated Red Blood Cells % 0.1 %; Platelet Count (auto) 219 10^3/uL (140-450); Red Blood Cells 4.16 10^6/uL (4.5-5.90); Red Cell Distribution Width 16.9 % (11.8-14.3); White Blood Cell 7.3 10^3/uL (4.4-10.8)
[2024-06-12 05:40] LABS: Alanine Aminotransferase 15 U/L (7-40); Albumin 3.2 g/dL (3.2-4.8); Alkaline Phosphatase 113 U/L (46-116); Anion Gap 14 (5-15); Aspartate Aminotransferase 19 U/L (13-40); BUN/Creatinine Ratio 38.3 (10.0-20.0); Calcium 8.9 mg/dL (8.7-10.4); Chloride 99 mmol/L (98-107); Magnesium 1.8 mg/dL (1.6-2.6); Potassium 3.9 mmol/L (3.5-5.1)
[2024-06-12 05:44] LABS: Bilirubin, Total 4.1 mg/dL (0.2-1.0); Blood Urea Nitrogen 49 mg/dL (9-23); Carbon Dioxide 17 mmol/L (20-31); Glucose 143 mg/dL (74-106); Sodium 130 mmol/L (136-145); Total Protein 4.9 g/dL (5.7-8.2)
--- NOTE | 2024-06-12 06:07 | DVH ---
EXAM: XR Cervical Spine, 6 or More Views CLINICAL INDICATION: sob TECHNIQUE: Frontal, lateral, oblique and flexion/extension views of the cervical spine. COMPARISON: None FINDINGS: VERTEBRAE: Unremarkable. No acute fracture. Normal alignment. No instability. DISC SPACES: No acute findings. No significant narrowing. SOFT TISSUES: Unremarkable. HEART: Cardiomegaly with mild congestion. OTHER FINDINGS: . . IMPRESSION: Cardiomegaly with mild congestion.
[2024-06-12 08:30] VITALS: PULSE 104; RESP 15; O2SAT 93
[2024-06-12] MEDS: ALBUMIN 25% 100 ML IV ONE (14:15)
--- NOTE | 2024-06-12 14:49 | DVHPN2 ---
Progress Note Date Seen: Jun 12, 2024 Medical Necessity Reason Pt with a Central, PICC or Fol: No Subjective Patient reports: No new complaints, Other Review of Systems: Deferred Objective vital signs Vital Sign Date Time Temp Pulse Resp B/P (MAP) Pulse Ox O2 Delivery O2 Flow Rate FiO2 06/12/24 12:50 101 06/12/24 11:30 15 97/68 (78) 91 06/12/24 08:30 Nasal Cannula* 6 44 06/12/24 08:00 97.4 97.4 Total Intake and Output 06/11/24 06/11/24 06/12/24 15:00 23:00 07:00 Intake Total 167.5 ml 125 ml 125 ml Balance 167.5 ml 125 ml 125 ml medications Current Medications Medications Dose Ordered Sig/Zenia Route Start Time Stop Time Status Last Admin Dose Admin Piperacillin Sod/ Tazobactam Sod 100 ml @ 25 mls/hr Q8HR IV 06/09/24 06:00 06/12/24 06:30 25 MLS/HR Diagnostic Test (Pha) 1 strip ACHS 06/09/24 07:00 06/10/24 22:00 1 STRIP Insulin Human Regular ACHS SC 06/09/24 07:00 Dextrose 50 ml UD PRN IV 06/09/24 01:00 Sodium Chloride 10 ml Q8HR IV 06/09/24 06:00 06/12/24 06:20 10 ML Ondansetron HCl 4 mg Q4HP PRN IV 06/09/24 01:00 Docusate Sodium 100 mg BIDPRN PRN PO 06/09/24 01:00 Norepinephrine Bitartrate 250 ml @ 3.75 mls/hr Q24H IV 06/09/24 04:15 06/11/24 23:30 3.75 MLS/HR Midodrine 10 mg TID@0600,1200,1800 PO 06/09/24 07:30 06/12/24 06:35 10 MG Pantoprazole Sodium 40 mg BID IV 06/10/24 22:00 06/12/24 11:05 40 MG Lactulose 30 ml TID PO 06/11/24 22:00 Sodium Bicarbonate 650 mg BID PO 06/11/24 22:00 06/11/24 23:14 650 MG Examination: GENERAL:Normal, LUNGS:Abnormal, ABDOMEN:Abnormal, MSK:Abnormal, NEURO:Normal laboratory and microbiology Laboratory Tests 06/12/24 04:56 Test 06/12/24 04:56 Range/Units Serum Glucose 143 H 74-106 mg/dL Microbiology Date/Time Source Procedure Growth Status 06/09/24 12:42 Blood Blood Culture - Preliminary NO GROWTH AFTER 72 HOURS OF INCUBATION. Resulted Problem List/Assessment/Plan Problem List/Assessment/Plan Acute kidney injury hemodynamic etiology in the setting of shock Chronic kidney disease baseline is unknown Cirrhosis with ascites Hepatic encephalopathy Hypotension Metabolic acidosis shock Peripheral vascular disease with bilateral BKA Recommendations Patient currently on Levophed and Sandostatin drip Renal function significantly better since admission Patient remains nonoliguric Ultrasound no hydronephrosis po bicarb paracentesis Plan discussed with: Patient SALAZAR KLINE MD Jun 12, 2024 14:49
--- NOTE | 2024-06-12 15:54 | DVHPN2 ---
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 He denies abdominal pain, nausea, vomiting. He is A&O x2, not oriented to date or time. He denies history of alcoholism/smoking or hepatitis. Her paracentesis at the urgent care recently varicose every 2 weeks for paracentesis. Patient seen and examined in the ER. Patient is unstable for EGD, continue supportive management. Objective vital signs Vital Sign Date Time Temp Pulse Resp B/P (MAP) Pulse Ox O2 Delivery O2 Flow Rate FiO2 06/12/24 12:50 101 06/12/24 11:30 15 97/68 (78) 91 06/12/24 08:30 Nasal Cannula* 6 44 06/12/24 08:00 97.4 97.4 Total Intake and Output 06/11/24 06/11/24 06/12/24 15:00 23:00 07:00 Intake Total 167.5 ml 125 ml 125 ml Balance 167.5 ml 125 ml 125 ml medications Current Medications Medications Dose Ordered Sig/Zenia Route Start Time Stop Time Status Last Admin Dose Admin Piperacillin Sod/ Tazobactam Sod 100 ml @ 25 mls/hr Q8HR IV 06/09/24 06:00 06/12/24 06:30 25 MLS/HR Diagnostic Test (Pha) 1 strip ACHS 06/09/24 07:00 06/10/24 22:00 1 STRIP Insulin Human Regular ACHS SC 06/09/24 07:00 Dextrose 50 ml UD PRN IV 06/09/24 01:00 Sodium Chloride 10 ml Q8HR IV 06/09/24 06:00 06/12/24 06:20 10 ML Ondansetron HCl 4 mg Q4HP PRN IV 06/09/24 01:00 Docusate Sodium 100 mg BIDPRN PRN PO 06/09/24 01:00 Norepinephrine Bitartrate 250 ml @ 3.75 mls/hr Q24H IV 06/09/24 04:15 06/11/24 23:30 3.75 MLS/HR Midodrine 10 mg TID@0600,1200,1800 PO 06/09/24 07:30 06/12/24 06:35 10 MG Pantoprazole Sodium 40 mg BID IV 06/10/24 22:00 06/12/24 11:05 40 MG Lactulose 30 ml TID PO 06/11/24 22:00 Sodium Bicarbonate 650 mg BID PO 06/11/24 22:00 06/11/24 23:14 650 MG Examination Patient lying in bed, in no acute distress General: Overweight, afebrile, palor, mucosae are moist Cardiovascular: Regular S1 and S2. No murmurs, gallops or rubs. No JVD elevation. No pedal edema Respiratory: Normal B/L air entry on room air. Clear lung sounds on auscultation Abdomen: Soft, nontender, distended normoactive bowel sounds, no rebound tenderness, no organomegaly, no masses Genitourinary: Deferred MSK/skin: Mobilizes 4 limbs. Skin is dry and warm Neurological: No motor, no sensitive deficits, normal speech. Pupils are isocoric and reactive. Psych/Mental Status: A/Ox2, not to time or date laboratory and microbiology Laboratory Tests 06/12/24 04:56 Test 06/12/24 04:56 Range/Units Serum Glucose 143 H 74-106 mg/dL Microbiology Date/Time Source Procedure Growth Status 06/09/24 12:42 Blood Blood Culture - Preliminary NO GROWTH AFTER 72 HOURS OF INCUBATION. Resulted Labs and/or images reviewed: Labs reviewed by me, Image(s) reviewed by me Problem List/Assessment/Plan Problem List/Assessment/Plan Cirrhosis with moderate ascites - negative Hepatitis studies Likely upper GI bleeding Hemorrhagic shock requiring pressor support Transaminitis secondary to above Direct bilirubinemia secondary to ?cholestasis Congestive heart failure, EF <20% Acute kidney injury likely vasomotor Plan: Patient is unstable for any GI procedure at this time. Recommend continuing supportive treatment and medical management. We will consider MRCP given the patient has hyperbilirubinemia and elevated ALP and liver ultrasound showing gallbladder wall thickening without evidence of acute cholecystitis. Dilated Cbd 0.9 cm. Discontinue octreotide given the patient is not actively bleeding Patient is scheduled for paracentesis. Start low-salt diet afterwards. NPO starting midnight Continue pantoprazole 40 mg IV b.i.d. Continue lactulose and target 2-3 BMs per day Diet: 2 g sodium diet Plan discussed with patient in which all questions have been answered Case discussed with Dr. Castillo Plan discussed with: Patient My Orders My Orders Orders - REJI MANZANARES Procedure Category Date Status Time Obtain Consent For: ORDERS 06/12/24 Transmitted 10:57 Obtain Consent For IVETTE 06/12/24 In Process Anesthesia 10:57 REJI MANZANARES Jun 12, 2024 15:53
--- NOTE | 2024-06-12 16:54 | DVHPN2 ---
Progress Note - Dictate Date Seen: Jun 12, 2024 Medical Necessity Reason Pt with a Central, PICC or Fol: No Subjective Patient was seen and evaluated in follow up. Patient is on 2 LPM NC. Patient is complaining of abdominal pain and nausea. Chest x-ray shows cardiomegaly with mild congestion. Patient is scheduled for paracentesis today. Dr. Castillo advised that the patient is not a candidate for EGD at this time. BUN 49. Telemetry reviewed. vital signs Vital Sign Date Time Temp Pulse Resp B/P (MAP) Pulse Ox O2 Delivery O2 Flow Rate FiO2 06/12/24 12:50 101 06/12/24 11:30 15 97/68 (78) 91 06/12/24 08:30 Nasal Cannula* 6 44 06/12/24 08:00 97.4 97.4 Total Intake and Output 06/11/24 06/11/24 06/12/24 15:00 23:00 07:00 Intake Total 167.5 ml 125 ml 125 ml Balance 167.5 ml 125 ml 125 ml medications Current Medications Medications Dose Ordered Sig/Zenia Route Start Time Stop Time Status Last Admin Dose Admin Piperacillin Sod/ Tazobactam Sod 100 ml @ 25 mls/hr Q8HR IV 06/09/24 06:00 06/12/24 06:30 25 MLS/HR Diagnostic Test (Pha) 1 strip ACHS 06/09/24 07:00 06/10/24 22:00 1 STRIP Insulin Human Regular ACHS SC 06/09/24 07:00 Dextrose 50 ml UD PRN IV 06/09/24 01:00 Sodium Chloride 10 ml Q8HR IV 06/09/24 06:00 06/12/24 06:20 10 ML Ondansetron HCl 4 mg Q4HP PRN IV 06/09/24 01:00 Docusate Sodium 100 mg BIDPRN PRN PO 06/09/24 01:00 Norepinephrine Bitartrate 250 ml @ 3.75 mls/hr Q24H IV 06/09/24 04:15 06/11/24 23:30 3.75 MLS/HR Midodrine 10 mg TID@0600,1200,1800 PO 06/09/24 07:30 06/12/24 06:35 10 MG Pantoprazole Sodium 40 mg BID IV 06/10/24 22:00 06/12/24 11:05 40 MG Lactulose 30 ml TID PO 06/11/24 22:00 Sodium Bicarbonate 650 mg BID PO 06/11/24 22:00 06/11/24 23:14 650 MG objective GENERAL: Awake, alert, oriented. LUNGS: Clear. CARDIOVASCULAR: Heart sounds are good. ABDOMEN: Distended. laboratory and microbiology Laboratory Tests 06/12/24 04:56 Test 06/12/24 04:56 Range/Units Serum Glucose 143 H 74-106 mg/dL Problem List Atrial fibrillation. Liver cirrhosis with ascites. Hyponatremia. Generalized weakness. Acute exacerbation of congestive heart failure. SULY. Hepatic encephalopathy. Hypotension. Metabolic acidosis. Peripheral vascular disease with bilateral BKA. Assessment/Plan Continued all current supportive medical care. Lactulose. Midodrine. Vasopressors for hemodynamic support. IV antibiotics as ordered. Additional plan as per the hospital course. Critical care time of 45 minutes provided to include time spent evaluation of patient at bedside, when appropriate patient/family education for diagnosis, treatment plan, review of pertinent medical information and discussion of care with specialty providers and PCP. Plan discussed with: Patient ARNOLD BAUTISTA MD Jun 12, 2024 16:53
--- NOTE | 2024-06-12 16:56 | DVH ---
US PARACENTESIS, HISTORY: ASCITES PROCEDURE: Informed consent was obtained. The patient was placed in supine position. A limited locali zation ultrasound of the abdomen was obtained, and the skin site over the largest pocket of fluid was marked and entry site was prepped with chlorhexidine which was allowed to dry and draped in the usua l sterile fashion. Time out was performed. Following administration of 1% lidocaine local anesthetic, a 5 Armenian centesis needle catheter was percutaneously inserted into the peritoneal collection until fluid was aspirated. The catheter was advanced into the fluid collection [place] [address] cc of fluid was aspirated and specimen sent for appropriate cultures/cytology/cultures and c ytology. The catheter was then removed and a sterile dressing applied. 50 gm of albumin colloid infus ion was given IV. No immediate complication was identified. FINDINGS: Limited ultrasound imaging demonstrates moderate ascites. Aspirated fluid was clear and ser ous. IMPRESSION: US-guided paracentesis with 12.5L removed.
[2024-06-12] MEDS: ALBUMIN 25% 100 ML IV SCH (18:31)
[2024-06-12 19:45] VITALS: PULSE 95; RESP 20; O2SAT 98
--- NOTE | 2024-06-12 19:54 | DVHPNRES ---
Progress Note Date Seen: Jun 12, 2024 Resident Creating Document: RONEY BECK RESIDENT Medical Necessity Reason Pt with a Central, PICC or Fol: No Subjective Review of Systems pt seen and examined at bedside currently on 6l o2 through nasal canula pt was scheduled for upper GI endoscopy but was on pressors, Per GI unstable for the procedure later was started on diet had paracentesis later in the evening Objective vital signs Vital Sign Date Time Temp Pulse Resp B/P (MAP) Pulse Ox O2 Delivery O2 Flow Rate FiO2 06/12/24 19:30 95 12 105/68 (80) 95 06/12/24 08:30 Nasal Cannula* 6 44 06/12/24 08:00 97.4 97.4 Total Intake and Output 06/11/24 06/11/24 06/12/24 15:00 23:00 07:00 Intake Total 167.5 ml 125 ml 125 ml Balance 167.5 ml 125 ml 125 ml medications Current Medications Medications Dose Ordered Sig/Zenia Route Start Time Stop Time Status Last Admin Dose Admin Piperacillin Sod/ Tazobactam Sod 100 ml @ 25 mls/hr Q8HR IV 06/09/24 06:00 06/12/24 14:00 25 MLS/HR Diagnostic Test (Pha) 1 strip ACHS 06/09/24 07:00 06/10/24 22:00 1 STRIP Insulin Human Regular ACHS SC 06/09/24 07:00 Dextrose 50 ml UD PRN IV 06/09/24 01:00 Sodium Chloride 10 ml Q8HR IV 06/09/24 06:00 06/12/24 18:14 10 ML Ondansetron HCl 4 mg Q4HP PRN IV 06/09/24 01:00 Docusate Sodium 100 mg BIDPRN PRN PO 06/09/24 01:00 Norepinephrine Bitartrate 250 ml @ 3.75 mls/hr Q24H IV 06/09/24 04:15 06/12/24 13:45 26.25 MLS/HR Midodrine 10 mg TID@0600,1200,1800 PO 06/09/24 07:30 06/12/24 18:51 10 MG Pantoprazole Sodium 40 mg BID IV 06/10/24 22:00 06/12/24 11:05 40 MG Lactulose 30 ml TID PO 06/11/24 22:00 Sodium Bicarbonate 650 mg BID PO 06/11/24 22:00 06/11/24 23:14 650 MG Examination Examination General Appearance: Alert, Oriented X3, Cooperative, HEENT: EOMI Respiratory: Clear to auscultation, Normal air movement Cardiovascular: Regular rate, Normal S1, Normal S2 Abdominal: Abdominal distention Extremities: Bilateral above-knee amputation present on admission Skin: Sacral ulcer stage 1/2 Neuro: Normal speech and tone Mild drowsiness laboratory and microbiology Laboratory Tests 06/12/24 04:56 Test 06/12/24 04:56 Range/Units Serum Glucose 143 H 74-106 mg/dL Microbiology Date/Time Source Procedure Growth Status 06/09/24 12:42 Blood Blood Culture - Preliminary NO GROWTH AFTER 72 HOURS OF INCUBATION. Resulted Labs and/or images reviewed: Labs reviewed by me, Image(s) reviewed by me Problem List/Assessment/Plan Problem List/Assessment/Plan Assessment/plan Neurology # hepatic encephalopathy stage 0-1 -currently NPO, we will start lactulose once cleared by the GI Ammonia levels Cardiology # shock likely septic/hypovolemic/cardiogenic -currently on norepinephrine Target map of 60 and systolic of 90 #? Acute heart failure with reduced ejection fraction -last echo showed ejection fraction of less than 20% with global hypokinesis and RA dilation # [id number] TR -seen on last echo # atrial fibrillation -avoid anticoagulation because of GI bleeding #Peripheral vascular disease with bilateral BKA POA -hold antiplatelets considering GI bleed Resp GI # large volume ascites status post paracentesis due to liver cirrhosis -paracentesis done around 8 L were removed paracentesis done today 12.5L removed. # GI bleed, likely upper GI bleed -NPO IV Protonix 40 mg b.i.d. Octreotide drip discontinued by GI Plan upper GI endoscopy in the a.m. # decompensated liver cirrhosis -likely due to alcohol use disorder -hepatitis panel # transaminitis with hyperbilirubinemia likely due to liver cirrhosis Monitor # Gallbladder wall thickening without evidence of acute cholecystitis. -seen on liver USG Endocrine # diabetes mellitus type 2 -sliding scale insulin Hematology/oncology Nephrology # hyponatremia likely due to hypervolemia due to liver cirrhosis -monitor #Acute kidney injury due to VMN suspect prerenal disease in the setting of hypotension and decreased renal perfusion ?Chronic kidney disease baseline is unknown -nephrology on board -monitor Infectious Disease #Sepsis with septic shock ?SBP -IV Zosyn -starting IV vanco Dermatology #Sacral Ulcer POA -wound care DVT prophylaxis on hold because of GI bleed PUD prophylaxis IV protonix BID Nutrition clear liquid diet Bowel Regimen on hold as patient has gi bleed Lines Drips Norepinephrine Code status discussed with the patient for >21 min, FULL CODE Critical care time excluding procedures 67 minutes Case discussion with Dr orantes Plan discussed with: Other My Orders My Orders Orders - RONEY BECK Procedure Category Date Status Time Chest Portable XY 06/12/24 Resulted 04:00 * Radiologist Consult CONS 06/12/24 Transmitted 14:06 Paracentesis US 06/12/24 Resulted 15:41 Date of Service: Jun 12, 2024 Billing Provider: BAM ORANTES MD Common Visit Codes: 59257-SKLRSIYM CARE 30-74 MIN RONEY BECK Jun 12, 2024 19:54 BAM ORANTES MD Jun 13, 2024 16:23
[2024-06-12] MEDS ORDERED: VANCOMYCIN PER PHARMACY 0 MG IV SCH (20:00)
[2024-06-12 20:56] LABS: Body Fluid Polymorphonuclear 16 % (0-25); Body Fluid Red Blood Cells 633 CUMM (0-2000); Body Fluid White Blood Cells 204 CUMM (0-200)
[2024-06-12] MEDS ORDERED: VANCOMYCIN 1.25GM/250ML 250 ML IV SCH (21:00)
[2024-06-12] MEDS: VANCOMYCIN 750MG KIT 100 ML IV SCH (21:28)
[2024-06-13 00:10] VITALS: PULSE 114; RESP 18; O2SAT 93
[2024-06-13 07:10] LABS: Basophils # (auto) 0.1 10 ^3/uL (0-0.2); Basophils % (auto) 1.2 % (0.0-2.0); Eosinophils # (auto) 0.1 10 ^3/uL (0-0.8); Eosinophils % (auto) 1.6 % (0.0-7.0); Hemoglobin 14.2 g/dL (13.5-17.5); Lymphocytes # (auto) 0.6 10 ^3/uL (0.4-5.4); Lymphocytes % (auto) 7.5 % (10.0-50.0); Mean Corpuscular Hemoglobin 32.2 pg (28.0-32.0); Mean Corpuscular Hgb Conc. 33.9 g/dL (32.0-36.0); Mean Corpuscular Volume 95.1 fL (80.0-100.0); Monocytes # (auto) 1.1 10 ^3/uL (0-1.3); Monocytes % (auto) 14.2 % (0.0-12.0); Neutrophils # (auto) 5.9 10 ^3/uL (1.6-8.6); Neutrophils % (auto) 75.5 % (37.0-80.0); Nucleated Red Blood Cells % 0.2 %; Platelet Count (auto) 237 10^3/uL (140-450); Red Blood Cells 4.42 10^6/uL (4.5-5.90); Red Cell Distribution Width 16.9 % (11.8-14.3); White Blood Cell 7.8 10^3/uL (4.4-10.8)
[2024-06-13 07:42] LABS: Alanine Aminotransferase 11 U/L (7-40); Albumin 3.3 g/dL (3.2-4.8); Alkaline Phosphatase 95 U/L (46-116); Anion Gap 11 (5-15); Aspartate Aminotransferase 16 U/L (13-40); BUN/Creatinine Ratio 28.7 (10.0-20.0); Carbon Dioxide 21 mmol/L (20-31); Glucose 102 mg/dL (74-106); Magnesium 1.7 mg/dL (1.6-2.6); Potassium 3.8 mmol/L (3.5-5.1)
[2024-06-13 07:45] VITALS: PULSE 100; RESP 19; O2SAT 98
[2024-06-13 07:52] LABS: Bilirubin, Direct 1.5 mg/dL (<0.3); Bilirubin, Total 3.1 mg/dL (0.2-1.0); Blood Urea Nitrogen 33 mg/dL (9-23); Calcium 8.7 mg/dL (8.7-10.4); Chloride 98 mmol/L (98-107); Sodium 130 mmol/L (136-145); Total Protein 4.9 g/dL (5.7-8.2)
--- NOTE | 2024-06-13 13:54 | DVHPN2 ---
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 He denies abdominal pain, nausea, vomiting. He is A&O x2, not oriented to date or time. He denies history of alcoholism/smoking or hepatitis. Her paracentesis at the urgent care recently varicose every 2 weeks for paracentesis. Patient seen and examined in the ER. Hemoglobin is stable. No need for EGD at this point. Objective vital signs Vital Sign Date Time Temp Pulse Resp B/P (MAP) Pulse Ox O2 Delivery O2 Flow Rate FiO2 06/13/24 13:28 110/74 06/13/24 12:30 118 19 91 06/13/24 07:45 98.1 98.1 06/13/24 07:45 Nasal Cannula* 3 32 Total Intake and Output 06/12/24 06/12/24 06/13/24 15:00 23:00 07:00 Intake Total 296.85 ml 631.25 ml 261.25 ml Balance 296.85 ml 631.25 ml 261.25 ml medications Current Medications Medications Dose Ordered Sig/Zenia Route Start Time Stop Time Status Last Admin Dose Admin Piperacillin Sod/ Tazobactam Sod 100 ml @ 25 mls/hr Q8HR IV 06/09/24 06:00 06/13/24 13:43 25 MLS/HR Diagnostic Test (Pha) 1 strip ACHS 06/09/24 07:00 06/12/24 22:24 1 STRIP Insulin Human Regular ACHS SC 06/09/24 07:00 Dextrose 50 ml UD PRN IV 06/09/24 01:00 Sodium Chloride 10 ml Q8HR IV 06/09/24 06:00 06/13/24 13:43 10 ML Ondansetron HCl 4 mg Q4HP PRN IV 06/09/24 01:00 Docusate Sodium 100 mg BIDPRN PRN PO 06/09/24 01:00 Norepinephrine Bitartrate 250 ml @ 3.75 mls/hr Q24H IV 06/09/24 04:15 06/13/24 13:28 33.75 MLS/HR Midodrine 10 mg TID@0600,1200,1800 PO 06/09/24 07:30 06/13/24 12:01 10 MG Pantoprazole Sodium 40 mg BID IV 06/10/24 22:00 06/13/24 10:37 40 MG Lactulose 30 ml TID PO 06/11/24 22:00 Sodium Bicarbonate 650 mg BID PO 06/11/24 22:00 06/13/24 10:37 650 MG Vancomycin HCl 0 ml @ 0 mls/hr UD IV 06/12/24 20:00 Vancomycin HCl 250 ml @ 200 mls/hr Q12H IV 06/12/24 21:00 UNV Vancomycin HCl 100 ml @ 100 mls/hr Q12H IV 06/12/24 21:00 06/13/24 10:34 100 MLS/HR Examination Patient lying in bed, in no acute distress General: Overweight, afebrile, palor, mucosae are moist Cardiovascular: Regular S1 and S2. No murmurs, gallops or rubs. No JVD elevation. No pedal edema Respiratory: Normal B/L air entry on room air. Clear lung sounds on auscultation Abdomen: Soft, nontender, distended normoactive bowel sounds, no rebound tenderness, no organomegaly, no masses Genitourinary: Deferred MSK/skin: Mobilizes 4 limbs. Skin is dry and warm Neurological: No motor, no sensitive deficits, normal speech. Pupils are isocoric and reactive. Psych/Mental Status: A/Ox2, not to time or date laboratory and microbiology Laboratory Tests 06/13/24 06:47 Test 06/13/24 06:47 Range/Units Serum Glucose 102 74-106 mg/dL Microbiology Date/Time Source Procedure Growth Status 06/09/24 12:42 Blood Blood Culture - Preliminary NO GROWTH AFTER 72 HOURS OF INCUBATION. Resulted Labs and/or images reviewed: Labs reviewed by me, Image(s) reviewed by me Problem List/Assessment/Plan Problem List/Assessment/Plan Cirrhosis with moderate ascites - negative Hepatitis studies Likely upper GI bleeding Hemorrhagic shock requiring pressor support Transaminitis secondary to above Direct bilirubinemia secondary to ?cholestasis Congestive heart failure, EF <20% Acute kidney injury likely vasomotor Plan: Hemoglobin is stable, no active bleeding. No emergent need for any GI procedure at this time. Recommend continuing supportive treatment and medical management. We will consider MRCP given the patient has hyperbilirubinemia and elevated ALP and liver ultrasound showing gallbladder wall thickening without evidence of acute cholecystitis. Dilated Cbd 0.9 cm. Discontinue octreotide given the patient is not actively bleeding Patient is scheduled for paracentesis. Start low-salt diet afterwards. NPO starting midnight Continue pantoprazole 40 mg IV b.i.d. Continue lactulose and target 2-3 BMs per day Diet: 2 g sodium diet Plan discussed with patient in which all questions have been answered Case discussed with Dr. Castillo Plan discussed with: Patient REJI MANZANARES RESIDENT Jun 13, 2024 13:54
[2024-06-13] MEDS: AMIODARONE BOLUS KIT 100 ML IV ONE (14:05)
[2024-06-13] MEDS: AMIODARONE 360mg/200mL PREMIX 200 ML IV ONE (14:06)
--- NOTE | 2024-06-13 14:48 | DVHPN2 ---
Progress Note Date Seen: Jun 13, 2024 Medical Necessity Reason Pt with a Central, PICC or Fol: No Subjective Patient reports: Other (wants to go home) Review of Systems: Deferred Objective vital signs Vital Sign Date Time Temp Pulse Resp B/P (MAP) Pulse Ox O2 Delivery O2 Flow Rate FiO2 06/13/24 14:00 104 26 108/81 (90) 91 06/13/24 07:45 98.1 98.1 06/13/24 07:45 Nasal Cannula* 3 32 Total Intake and Output 06/12/24 06/12/24 06/13/24 15:00 23:00 07:00 Intake Total 296.85 ml 631.25 ml 261.25 ml Balance 296.85 ml 631.25 ml 261.25 ml medications Current Medications Medications Dose Ordered Sig/Zenia Route Start Time Stop Time Status Last Admin Dose Admin Piperacillin Sod/ Tazobactam Sod 100 ml @ 25 mls/hr Q8HR IV 06/09/24 06:00 06/13/24 13:43 25 MLS/HR Diagnostic Test (Pha) 1 strip ACHS 06/09/24 07:00 06/12/24 22:24 1 STRIP Insulin Human Regular ACHS SC 06/09/24 07:00 Dextrose 50 ml UD PRN IV 06/09/24 01:00 Sodium Chloride 10 ml Q8HR IV 06/09/24 06:00 06/13/24 13:43 10 ML Ondansetron HCl 4 mg Q4HP PRN IV 06/09/24 01:00 Docusate Sodium 100 mg BIDPRN PRN PO 06/09/24 01:00 Norepinephrine Bitartrate 250 ml @ 3.75 mls/hr Q24H IV 06/09/24 04:15 06/13/24 13:28 33.75 MLS/HR Midodrine 10 mg TID@0600,1200,1800 PO 06/09/24 07:30 06/13/24 12:01 10 MG Pantoprazole Sodium 40 mg BID IV 06/10/24 22:00 06/13/24 10:37 40 MG Lactulose 30 ml TID PO 06/11/24 22:00 Sodium Bicarbonate 650 mg BID PO 06/11/24 22:00 06/13/24 10:37 650 MG Vancomycin HCl 0 ml @ 0 mls/hr UD IV 06/12/24 20:00 Vancomycin HCl 250 ml @ 200 mls/hr Q12H IV 06/12/24 21:00 UNV Vancomycin HCl 100 ml @ 100 mls/hr Q12H IV 06/12/24 21:00 06/13/24 10:34 100 MLS/HR Examination: GENERAL:Abnormal, ABDOMEN:Abnormal, MSK:Abnormal (amputation), SKIN:Abnormal laboratory and microbiology Laboratory Tests 06/13/24 06:47 Test 06/13/24 06:47 Range/Units Serum Glucose 102 74-106 mg/dL Microbiology Date/Time Source Procedure Growth Status 06/12/24 16:40 Ascities Fluid Gram Stain Pending Resulted 06/12/24 16:40 Ascities Fluid Body Fluid Culture - Preliminary Resulted 06/09/24 12:42 Blood Blood Culture - Preliminary NO GROWTH AFTER 72 HOURS OF INCUBATION. Resulted Problem List/Assessment/Plan Problem List/Assessment/Plan Acute kidney injury hemodynamic etiology in the setting of shock Chronic kidney disease baseline is unknown Cirrhosis with ascites Hepatic encephalopathy Hypotension Metabolic acidosis shock Peripheral vascular disease with bilateral BKA Recommendations Patient currently on Levophed Renal function significantly better since admission Patient remains nonoliguric Ultrasound no hydronephrosis po bicarb paracentesis i will sign off this case pls reconsult if needed Plan discussed with: Patient SALAZAR KLINE MD Jun 13, 2024 14:47
--- NOTE | 2024-06-13 15:37 | DVHPN2 ---
Progress Note - Dictate Date Seen: Jun 13, 2024 Medical Necessity Reason Pt with a Central, PICC or Fol: No Subjective Patient was seen and evaluated in follow up. Patient is on 3 LPM NC. Patient is s/p US-guided paracentesis with 12.5L removed. BUN 33. Patient started on IV Amiodarone due to A Fib. Telemetry reviewed. vital signs Vital Sign Date Time Temp Pulse Resp B/P (MAP) Pulse Ox O2 Delivery O2 Flow Rate FiO2 06/13/24 13:28 110/74 06/13/24 12:30 118 19 91 06/13/24 07:45 98.1 98.1 06/13/24 07:45 Nasal Cannula* 3 32 Total Intake and Output 06/12/24 06/12/24 06/13/24 15:00 23:00 07:00 Intake Total 296.85 ml 631.25 ml 261.25 ml Balance 296.85 ml 631.25 ml 261.25 ml medications Current Medications Medications Dose Ordered Sig/Zenia Route Start Time Stop Time Status Last Admin Dose Admin Piperacillin Sod/ Tazobactam Sod 100 ml @ 25 mls/hr Q8HR IV 06/09/24 06:00 06/13/24 13:43 25 MLS/HR Diagnostic Test (Pha) 1 strip ACHS 06/09/24 07:00 06/12/24 22:24 1 STRIP Insulin Human Regular ACHS SC 06/09/24 07:00 Dextrose 50 ml UD PRN IV 06/09/24 01:00 Sodium Chloride 10 ml Q8HR IV 06/09/24 06:00 06/13/24 13:43 10 ML Ondansetron HCl 4 mg Q4HP PRN IV 06/09/24 01:00 Docusate Sodium 100 mg BIDPRN PRN PO 06/09/24 01:00 Norepinephrine Bitartrate 250 ml @ 3.75 mls/hr Q24H IV 06/09/24 04:15 06/13/24 13:28 33.75 MLS/HR Midodrine 10 mg TID@0600,1200,1800 PO 06/09/24 07:30 06/13/24 12:01 10 MG Pantoprazole Sodium 40 mg BID IV 06/10/24 22:00 06/13/24 10:37 40 MG Lactulose 30 ml TID PO 06/11/24 22:00 Sodium Bicarbonate 650 mg BID PO 06/11/24 22:00 06/13/24 10:37 650 MG Vancomycin HCl 0 ml @ 0 mls/hr UD IV 06/12/24 20:00 Vancomycin HCl 250 ml @ 200 mls/hr Q12H IV 06/12/24 21:00 UNV Vancomycin HCl 100 ml @ 100 mls/hr Q12H IV 06/12/24 21:00 06/13/24 10:34 100 MLS/HR objective GENERAL: Awake, alert, oriented. LUNGS: Clear. CARDIOVASCULAR: Heart sounds are good. ABDOMEN: Distended. laboratory and microbiology Laboratory Tests 06/13/24 06:47 Test 06/13/24 06:47 Range/Units Serum Glucose 102 74-106 mg/dL Problem List Atrial fibrillation. Liver cirrhosis with ascites. Hyponatremia. Generalized weakness. Acute exacerbation of congestive heart failure. SULY. Hepatic encephalopathy. Hypotension. Metabolic acidosis. Peripheral vascular disease with bilateral BKA. Assessment/Plan Continued all current supportive medical care. Lactulose. Midodrine. Vasopressors for hemodynamic support. IV antibiotics as ordered. Additional plan as per the hospital course. Critical care time of 45 minutes provided to include time spent evaluation of patient at bedside, when appropriate patient/family education for diagnosis, treatment plan, review of pertinent medical information and discussion of care with specialty providers and PCP. Plan discussed with: Patient ARNOLD BAUTISTA MD Jun 13, 2024 14:03
[2024-06-13] MEDS: AMIODARONE 360mg/200mL PREMIX 200 ML IV SCH (15:51)
[2024-06-13] MEDS: ALBUMIN 25% 50 ML IV SCH (16:52)
[2024-06-13 19:50] VITALS: PULSE 118; RESP 16
--- NOTE | 2024-06-13 22:30 | DVHPNRES ---
Progress Note Date Seen: Jun 13, 2024 Resident Creating Document: RONEY BECK RESIDENT Medical Necessity Reason Pt with a Central, PICC or Fol: No Subjective Review of Systems pt seen and examined at bedside mentions no new complains pt was scheduled for upper GI endoscopy but was on pressors, Per GI unstable for the procedure on diet had paracentesis yesterday Objective vital signs Vital Sign Date Time Temp Pulse Resp B/P (MAP) Pulse Ox O2 Delivery O2 Flow Rate FiO2 06/13/24 20:00 116 06/13/24 19:50 16 Nasal Cannula* 3 32 06/13/24 19:00 107/74 06/13/24 19:00 92 06/13/24 07:45 98.1 98.1 Total Intake and Output 06/12/24 06/12/24 06/13/24 15:00 23:00 07:00 Intake Total 296.85 ml 631.25 ml 261.25 ml Balance 296.85 ml 631.25 ml 261.25 ml medications Current Medications Medications Dose Ordered Sig/Zenia Route Start Time Stop Time Status Last Admin Dose Admin Piperacillin Sod/ Tazobactam Sod 100 ml @ 25 mls/hr Q8HR IV 06/09/24 06:00 06/13/24 13:43 25 MLS/HR Diagnostic Test (Pha) 1 strip ACHS 06/09/24 07:00 06/12/24 22:24 1 STRIP Insulin Human Regular ACHS SC 06/09/24 07:00 Dextrose 50 ml UD PRN IV 06/09/24 01:00 Sodium Chloride 10 ml Q8HR IV 06/09/24 06:00 06/13/24 21:31 10 ML Ondansetron HCl 4 mg Q4HP PRN IV 06/09/24 01:00 Docusate Sodium 100 mg BIDPRN PRN PO 06/09/24 01:00 Norepinephrine Bitartrate 250 ml @ 3.75 mls/hr Q24H IV 06/09/24 04:15 06/13/24 13:28 33.75 MLS/HR Midodrine 10 mg TID@0600,1200,1800 PO 06/09/24 07:30 06/13/24 18:07 10 MG Pantoprazole Sodium 40 mg BID IV 06/10/24 22:00 06/13/24 21:35 40 MG Lactulose 30 ml TID PO 06/11/24 22:00 Sodium Bicarbonate 650 mg BID PO 06/11/24 22:00 06/13/24 21:35 650 MG Vancomycin HCl 0 ml @ 0 mls/hr UD IV 06/12/24 20:00 Vancomycin HCl 250 ml @ 200 mls/hr Q12H IV 06/12/24 21:00 UNV Vancomycin HCl 100 ml @ 100 mls/hr Q12H IV 06/12/24 21:00 06/13/24 21:30 100 MLS/HR Albumin Human 50 ml @ 100 mls/hr Q8H IV 06/13/24 16:30 06/14/24 08:59 06/13/24 16:52 100 MLS/HR Examination Examination General Appearance: Alert, Oriented X3, Cooperative, HEENT: EOMI Respiratory: Clear to auscultation, Normal air movement Cardiovascular: Regular rate, Normal S1, Normal S2 Abdominal: Abdominal distention Extremities: Bilateral above-knee amputation present on admission Skin: Sacral ulcer stage 1/2 Neuro: Normal speech and tone Mild drowsiness laboratory and microbiology Laboratory Tests 06/13/24 06:47 Test 06/13/24 06:47 Range/Units Serum Glucose 102 74-106 mg/dL Microbiology Date/Time Source Procedure Growth Status 06/12/24 16:40 Ascities Fluid Gram Stain Pending Resulted 06/12/24 16:40 Ascities Fluid Body Fluid Culture - Preliminary Resulted 06/09/24 12:42 Blood Blood Culture - Preliminary NO GROWTH AFTER 72 HOURS OF INCUBATION. Resulted Labs and/or images reviewed: Labs reviewed by me, Image(s) reviewed by me Problem List/Assessment/Plan Problem List/Assessment/Plan Assessment/plan Neurology # hepatic encephalopathy stage 0-1 -currently NPO, we will start lactulose once cleared by the GI Ammonia levels Cardiology # shock likely septic/hypovolemic/cardiogenic -currently on norepinephrine Target map of 60 and systolic of 90 -iv albumin once #? Acute heart failure with reduced ejection fraction -last echo showed ejection fraction of less than 20% with global hypokinesis and RA dilation # [id number] TR -seen on last echo # atrial fibrillation -avoid anticoagulation because of GI bleeding -amiodarone drip #Peripheral vascular disease with bilateral BKA POA -hold antiplatelets considering GI bleed Resp GI # large volume ascites status post paracentesis due to liver cirrhosis -paracentesis done around 8 L were removed paracentesis done today 12.5L removed. # GI bleed, likely upper GI bleed -NPO IV Protonix 40 mg b.i.d. Octreotide drip discontinued by GI Plan upper GI endoscopy in the a.m. # decompensated liver cirrhosis -likely due to alcohol use disorder -hepatitis panel # transaminitis with hyperbilirubinemia likely due to liver cirrhosis Monitor # Gallbladder wall thickening without evidence of acute cholecystitis. -seen on liver USG Endocrine # diabetes mellitus type 2 -sliding scale insulin Hematology/oncology Nephrology # hyponatremia likely due to hypervolemia due to liver cirrhosis -monitor #Acute kidney injury due to VMN suspect prerenal disease in the setting of hypotension and decreased renal perfusion ?Chronic kidney disease baseline is unknown -nephrology on board -monitor Infectious Disease #Sepsis with septic shock ?SBP -IV Zosyn -starting IV vanco Dermatology #Sacral Ulcer POA -wound care DVT prophylaxis on hold because of GI bleed PUD prophylaxis IV protonix BID Nutrition clear liquid diet Bowel Regimen on hold as patient has gi bleed Lines Drips Norepinephrine Code status discussed with the patient for >21 min, FULL CODE Critical care time excluding procedures 63 minutes Case discussion with Dr orantes Plan discussed with: Patient, Other My Orders My Orders Orders - RONEY BECK Procedure Category Date Status Time Amiodarone PHA 06/13/24 In Process 360mg/200ml Premix 16:00 Date of Service: Jun 13, 2024 Billing Provider: BAM ORANTES MD Common Visit Codes: [id number] CARE 30-74 MIN RONEY BECK Jun 13, 2024 22:30 BAM ORANTES MD Jun 14, 2024 12:53
--- NOTE | 2024-06-14 05:49 | DVH ---
EXAM: XR Chest, 1 View CLINICAL INDICATION: sob TECHNIQUE: Frontal view of the chest. COMPARISON: XY CHEST PORTABLE on DOS: 06/12/24 FINDINGS: LUNGS AND PLEURAL SPACES: CHF. Underlying pneumonia can not be excluded. No pneumothorax. HEART: Unremarkable. No cardiomegaly. MEDIASTINUM: Unremarkable. Normal mediastinal contour. BONES/JOINTS: Unremarkable. No acute fracture. OTHER FINDINGS: . None. . . IMPRESSION: CHF. Underlying pneumonia can not be excluded.
[2024-06-14 06:08] LABS: Hematocrit 40.1 % (41.0-53.0); Hemoglobin 13.6 g/dL (13.5-17.5); Mean Corpuscular Hgb Conc. 33.9 g/dL (32.0-36.0); Mean Corpuscular Volume 94.3 fL (80.0-100.0); Platelet Count (auto) 171 10^3/uL (140-450); Red Blood Cells 4.25 10^6/uL (4.5-5.90); White Blood Cell 6.6 10^3/uL (4.4-10.8)
[2024-06-14 06:26] LABS: Alkaline Phosphatase 87 U/L (46-116); Anion Gap 9 (5-15); Aspartate Aminotransferase 17 U/L (13-40); BUN/Creatinine Ratio 23.2 (10.0-20.0); Blood Urea Nitrogen 22 mg/dL (9-23); Glucose 105 mg/dL (74-106); Magnesium 1.7 mg/dL (1.6-2.6); Potassium 3.9 mmol/L (3.5-5.1)
[2024-06-14 06:33] LABS: Alanine Aminotransferase < 9 U/L (7-40); Albumin 3.2 g/dL (3.2-4.8); Bilirubin, Total 3.1 mg/dL (0.2-1.0); Calcium 8.4 mg/dL (8.7-10.4); Carbon Dioxide 19 mmol/L (20-31); Chloride 98 mmol/L (98-107); Sodium 126 mmol/L (136-145); Total Protein 4.7 g/dL (5.7-8.2)
[2024-06-14 06:34] LABS: Basophils % (manual) 0 (0.0-2.0); Blast Cells 0; Metamyelocytes % 0; Myelocytes % 0; Promyelocytes % 0; Reactive Lymphocytes 0
[2024-06-14 07:30] VITALS: PULSE 119; RESP 22; O2SAT 85
[2024-06-14 07:53] LABS: Band Neutrophils % (manual) 1; Eosinophils % (manual) 1 (0-7); Lymphocytes % (manual) 6 (10.0-50.0); Monocytes % (manual) 18 (0-12)
[2024-06-14 07:54] LABS: Anisocytosis Slight; Platelet Estimate Adequate
[2024-06-14] MEDS ORDERED: ONDANSETRON HCL 4 MG/2 ML VIAL IV PRN (09:00)
[2024-06-14] MEDS ORDERED: DOCUSATE SOD 100 MG CAP PO PRN (09:00)
[2024-06-14] MEDS: NOREPINEPHRINE 8 MG/250ML KIT 250 ML IV SCH (09:00)
[2024-06-14] MEDS ORDERED: DEXTROSE (50%) 50ML SYRG IV PRN (09:00)
[2024-06-14] MEDS: PANTOPRAZOLE 40 MG/10 ML VIAL INJ IV SCH (10:00)
[2024-06-14] MEDS: SODIUM BICARBONATE 650 MG TAB PO SCH (10:11)
[2024-06-14] MEDS: AMIODARONE BOLUS KIT 100 ML IV ONE (10:58)
[2024-06-14] MEDS: AMIODARONE 360mg/200mL PREMIX 200 ML IV ONE (11:25)
[2024-06-14] MEDS: InsuLIN REG 1unit/0.01ml Soln (100units/ml) SC SCH (11:30)
[2024-06-14] MEDS: ACCU-CHEK COMFORT CURVE STRIP VI SCH (11:30)
--- NOTE | 2024-06-14 11:49 | DVHPN2 ---
Progress Note Date Seen: Jun 14, 2024 Resident Creating Document: REJI MANZANARES RESIDENT Medical Necessity Reason Pt with a Central, PICC or Fol: No Subjective Review of Systems 43-year-old male with PMHx of CHF, diabetes mellitus and bilateral AKA amputation secondary to likely ali, presented to the ER with a chief complaint of abdominal distention. He denies abdominal pain, nausea, vomiting. He is A&O x2, not oriented to date or time. He denies history of alcoholism/smoking or hepatitis. Her paracentesis at the urgent care recently varicose every 2 weeks for paracentesis. Patient seen and examined in the ER. Hemoglobin is stable. No need for EGD at this point. Objective vital signs Vital Sign Date Time Temp Pulse Resp B/P (MAP) Pulse Ox O2 Delivery O2 Flow Rate FiO2 06/14/24 11:00 99/67 06/14/24 10:30 117 28 90 06/14/24 07:30 Nasal Cannula* 6 44 06/13/24 19:30 97.8 97.8 Total Intake and Output 06/13/24 06/13/24 06/14/24 15:00 23:00 07:00 Intake Total 200 ml 298 ml 298.00 ml Output Total 150 ml Balance 200 ml 148 ml 298.00 ml medications Current Medications Medications Dose Ordered Sig/Zenia Route Start Time Stop Time Status Last Admin Dose Admin Vancomycin HCl 0 ml @ 0 mls/hr UD IV 06/12/24 20:00 Vancomycin HCl 250 ml @ 200 mls/hr Q12H IV 06/12/24 21:00 UNV Vancomycin HCl 100 ml @ 100 mls/hr Q12H IV 06/12/24 21:00 06/14/24 09:00 100 MLS/HR Piperacillin Sod/ Tazobactam Sod 100 ml @ 25 mls/hr Q8HR IV 06/14/24 14:00 Diagnostic Test (Pha) 1 strip ACHS 06/14/24 11:30 Insulin Human Regular ACHS SC 06/14/24 11:30 Dextrose 50 ml UD PRN IV 06/14/24 09:00 Sodium Chloride 10 ml Q8HR IV 06/14/24 14:00 Ondansetron HCl 4 mg Q4HP PRN IV 06/14/24 09:00 Docusate Sodium 100 mg BIDPRN PRN PO 06/14/24 09:00 Norepinephrine Bitartrate 250 ml @ 3.75 mls/hr Q24H IV 06/14/24 09:00 06/14/24 09:00 18.75 MLS/HR Midodrine 10 mg TID@0600,1200,1800 PO 06/14/24 12:00 Pantoprazole Sodium 40 mg BID IV 06/14/24 10:00 06/14/24 10:00 40 MG Lactulose 30 ml TID PO 06/14/24 14:00 Sodium Bicarbonate 650 mg BID PO 06/14/24 10:00 06/14/24 10:11 650 MG Examination Patient lying in bed, in no acute distress General: Overweight, afebrile, palor, mucosae are moist Cardiovascular: Regular S1 and S2. No murmurs, gallops or rubs. No JVD elevation. No pedal edema Respiratory: Normal B/L air entry on room air. Clear lung sounds on auscultation Abdomen: Soft, nontender, resolving distention, normoactive bowel sounds, no rebound tenderness, no organomegaly, no masses Genitourinary: Deferred MSK/skin: Mobilizes 4 limbs. Skin is dry and warm Neurological: No motor, no sensitive deficits, normal speech. Pupils are isocoric and reactive. Psych/Mental Status: A/Ox2, not to time or date laboratory and microbiology Laboratory Tests 06/14/24 05:04 Test 06/14/24 05:04 Range/Units Serum Glucose 105 74-106 mg/dL Microbiology Date/Time Source Procedure Growth Status 06/12/24 16:40 Ascities Fluid Gram Stain Pending Resulted 06/12/24 16:40 Ascities Fluid Body Fluid Culture - Preliminary Resulted 06/09/24 12:42 Blood Blood Culture - Preliminary NO GROWTH AFTER 72 HOURS OF INCUBATION. Resulted Labs and/or images reviewed: Labs reviewed by me, Image(s) reviewed by me Problem List/Assessment/Plan Problem List/Assessment/Plan Cirrhosis with moderate ascites - negative Hepatitis studies Likely upper GI bleeding Hemorrhagic shock requiring pressor support Transaminitis secondary to above Direct bilirubinemia secondary to ?cholestasis Congestive heart failure, EF <20% Acute kidney injury likely vasomotor Deisi's discriminant function score 7.7 Original meld score 16 Meld na score 23, estimated 3 month mortality 19.6%. Plan: Hemoglobin is stable, no active bleeding. No emergent need for any GI procedure at this time. Recommend continuing supportive treatment and medical management. Outpatient GI follow up for further management. Recommend decreasing IV fluids if blood pressure permits. May start Diuretic if the patient's conditions permit. Eventually patient would require TIPS PROCEDURE Discontinue octreotide given the patient is not actively bleeding Patient is scheduled for paracentesis. Start low-salt diet afterwards. NPO starting midnight Continue pantoprazole 40 mg IV once Continue lactulose and target 2-3 BMs per day Diet: 2 g sodium diet Plan discussed with patient in which all questions have been answered Case discussed with Dr. Castillo Plan discussed with: Patient REJI MANZANARES RESIDENT Jun 14, 2024 11:49
[2024-06-14] MEDS ORDERED: MIDODRINE HCL 10 MG TAB PO SCH (12:00)
[2024-06-14 12:06] LABS: Protein, Body Fluid 2.5 g/dL (.)
--- NOTE | 2024-06-14 13:23 | DVHPN2 ---
Progress Note - Dictate Date Seen: Jun 14, 2024 Medical Necessity Reason Pt with a Central, PICC or Fol: No Subjective Patient was seen and evaluated in follow up. Patient is complaining of coccyx pain. Patient's O2 was increased to 6 LPM NC. The patient has been noncompliant with wearing oxygen. Amiodarone drip has been discontinued. NA 126, CA 8.4. Chest x-ray shows CHF. U Telemetry reviewed. vital signs Vital Sign Date Time Temp Pulse Resp B/P (MAP) Pulse Ox O2 Delivery O2 Flow Rate FiO2 06/14/24 11:00 99/67 06/14/24 10:30 117 28 90 06/14/24 07:30 Nasal Cannula* 6 44 06/13/24 19:30 97.8 97.8 Total Intake and Output 06/13/24 06/13/24 06/14/24 15:00 23:00 07:00 Intake Total 200 ml 298 ml 298.00 ml Output Total 150 ml Balance 200 ml 148 ml 298.00 ml medications Current Medications Medications Dose Ordered Sig/Zenia Route Start Time Stop Time Status Last Admin Dose Admin Vancomycin HCl 0 ml @ 0 mls/hr UD IV 06/12/24 20:00 Vancomycin HCl 250 ml @ 200 mls/hr Q12H IV 06/12/24 21:00 UNV Vancomycin HCl 100 ml @ 100 mls/hr Q12H IV 06/12/24 21:00 06/14/24 09:00 100 MLS/HR Piperacillin Sod/ Tazobactam Sod 100 ml @ 25 mls/hr Q8HR IV 06/14/24 14:00 Diagnostic Test (Pha) 1 strip ACHS 06/14/24 11:30 Insulin Human Regular ACHS SC 06/14/24 11:30 Dextrose 50 ml UD PRN IV 06/14/24 09:00 Sodium Chloride 10 ml Q8HR IV 06/14/24 14:00 Ondansetron HCl 4 mg Q4HP PRN IV 06/14/24 09:00 Docusate Sodium 100 mg BIDPRN PRN PO 06/14/24 09:00 Norepinephrine Bitartrate 250 ml @ 3.75 mls/hr Q24H IV 06/14/24 09:00 06/14/24 09:00 18.75 MLS/HR Midodrine 10 mg TID@0600,1200,1800 PO 06/14/24 12:00 Pantoprazole Sodium 40 mg BID IV 06/14/24 10:00 06/14/24 10:00 40 MG Lactulose 30 ml TID PO 06/14/24 14:00 Sodium Bicarbonate 650 mg BID PO 06/14/24 10:00 06/14/24 10:11 650 MG objective GENERAL: Awake, alert, oriented. LUNGS: Clear. CARDIOVASCULAR: Heart sounds are good. ABDOMEN: Distended. laboratory and microbiology Laboratory Tests 06/14/24 05:04 Test 06/14/24 05:04 Range/Units Serum Glucose 105 74-106 mg/dL Problem List Atrial fibrillation. Liver cirrhosis with ascites. Hyponatremia. Generalized weakness. Acute exacerbation of congestive heart failure. SULY. Hepatic encephalopathy. Hypotension. Metabolic acidosis. Peripheral vascular disease with bilateral BKA. Assessment/Plan Continued all current supportive medical care. Lactulose. Midodrine. Vasopressors for hemodynamic support. IV antibiotics as ordered. Additional plan as per the hospital course. Critical care time of 45 minutes provided to include time spent evaluation of patient at bedside, when appropriate patient/family education for diagnosis, treatment plan, review of pertinent medical information and discussion of care with specialty providers and PCP. Plan discussed with: Patient ARNOLD BAUTISTA MD Jun 14, 2024 12:05
[2024-06-14] MEDS ORDERED: LACTULOSE 20Gm/30ML SOLN PO SCH (14:00)
[2024-06-14] MEDS ORDERED: SODIUM CHLOR 0.9% PF (SALINE LOCK) 10ML VIAL/SYR IV SCH (14:00)
[2024-06-14] MEDS ORDERED: PIPERACILLIN-TAZOB 3.375GM 100 ML IV SCH (14:00)
[2024-06-14 15:30] VITALS: BP 88/48; RESP 18; O2SAT 67
[2024-06-14 15:35] VITALS: PULSE 112
[2024-06-14] MEDS ORDERED: AMIODARONE 360mg/200mL PREMIX 200 ML IV SCH (16:15)
--- NOTE | 2024-06-14 19:00 | DVHDSRES ---
Discharge Summary Date of Admission Resident Creating Document: RONEY BECK Jun 09, 2024 at 00:58 Date of Discharge: Jun 14, 2024 Labs/Diagnostic Data: Laboratory Results Test 06/14/24 08:04 06/14/24 05:04 06/13/24 06:47 06/12/24 22:23 Vancomycin Level Trough 13.3 ug/mL (5-10) White Blood Count 6.6 10^3/uL (4.4-10.8) Red Blood Count 4.25 10^6/uL (4.5-5.90) Hemoglobin 13.6 g/dL (13.5-17.5) Hematocrit 40.1 % (41.0-53.0) Mean Corpuscular Volume 94.3 fL (80.0-100.0) Mean Corpuscular Hemoglobin 32.0 pg (28.0-32.0) Mean Corpuscular Hemoglobin Concent 33.9 g/dL (32.0-36.0) Red Cell Distribution Width 17.0 % (11.8-14.3) Platelet Count 171 10^3/uL (140-450) Mean Platelet Volume 7.3 fL (6.9-10.8) Neutrophils (%) (Auto) % (37.0-80.0) Lymphocytes (%) (Auto) % (10.0-50.0) Monocytes (%) (Auto) % (0.0-12.0) Basophils (%) (Auto) % (0.0-2.0) Neutrophils # (Auto) 10 ^3/uL (1.6-8.6) Lymphocytes # (Auto) 10 ^3/uL (0.4-5.4) Monocytes # (Auto) 10 ^3/uL (0-1.3) Differential Total Cells Counted 100.0 (100) Neutrophils % (Manual) 74 (37.0-80.0) Band Neutrophils % (Manual) 1 Lymphocytes % (Manual) 6 (10.0-50.0) Monocytes % (Manual) 18 (0-12) Eosinophils % (Manual) 1 (0-7) Basophils % (Manual) 0 (0.0-2.0) Metamyelocytes % (manual) 0 Myelocytes % (Manual) 0 Promyelocytes % (Manual) 0 Blast Cells % (Manual) 0 Reactive Lymphocytes 0 Platelet Estimate Adequate Anisocytosis (manual) Slight Sodium Level 126 mmol/L (136-145) Potassium Level 3.9 mmol/L (3.5-5.1) Chloride Level 98 mmol/L (98-107) Carbon Dioxide Level 19 mmol/L (20-31) Anion Gap 9 (5-15) Blood Urea Nitrogen 22 mg/dL (9-23) Creatinine 0.95 mg/dL (0.700-1.30) Glomerular Filtration Rate Calc 103 mL/min (>90) BUN/Creatinine Ratio 23.2 (10.0-20.0) Serum Glucose 105 mg/dL (74-106) Calcium Level 8.4 mg/dL (8.7-10.4) Magnesium Level 1.7 mg/dL (1.6-2.6) Total Bilirubin 3.1 mg/dL (0.2-1.0) Aspartate Amino Transferase (AST) 17 U/L (13-40) Alanine Aminotransferase (ALT) < 9 U/L (7-40) Alkaline Phosphatase 87 U/L (46-116) Total Protein 4.7 g/dL (5.7-8.2) Albumin 3.2 g/dL (3.2-4.8) Eosinophils (%) (Auto) 1.6 % (0.0-7.0) Eosinophils # (Auto) 0.1 10 ^3/uL (0-0.8) Basophils # (Auto) 0.1 10 ^3/uL (0-0.2) Nucleated Red Blood Cells 0.2 % Direct Bilirubin 1.5 mg/dL (<0.3) POC Glucose 165 mg/dl (70-106) Test 06/12/24 16:40 06/12/24 04:56 06/11/24 16:45 06/11/24 13:01 Body Fluid Source Peritoneal fluid Body Fluid pH 8.0 Body Fluid WBC (Manual) 204 CUMM (0-200) Body Fluid RBC (Manual) 633 CUMM (0-2000) Body Fluid Mononuclear Cells 84 % Body Fluid Polymorphonuclear Cells 16 % (0-25) Body Fluid Glucose 122 mg/dL (.) Body Fluid Total Protein 2.5 g/dL (.) Body Fluid Lactate Dehydrogenase 88 IU/L (.) Lactate Dehydrogenase 182 U/L (120-246) Tumor Marker Alpha Fetoprotein 2.1 ng/mL (0.0-6.9) Prothrombin Time 14.0 sec (9.3-11.8) Prothrombin Time INR 1.36 (0.9-1.15) Activated Partial Thromboplast Time 34.4 SEC (24.5-34.5) Ammonia 25 umol/L (11-32) Test 06/11/24 03:25 06/08/24 17:50 06/08/24 17:16 Hepatitis B Surface Antigen Negative (Negative) Hepatitis C Antibody Negative (Negative) Urine Color Yellow (Yellow) Urine Clarity Clear (Clear) Urine pH 5.0 (5.0-9.0) Urine Specific [place] 1.022 (1.001-1.035) Urine Protein Trace (Negative) Urine Ketones Negative (Negative) Urine Blood Negative /uL (Negative) Urine Nitrite Negative (Negative) Urine Bilirubin Negative (Negative) Urine Urobilinogen 2 mg/dL (Negative) Urine Leukocyte Esterase Negative /uL (Negative) Urine RBC 1 /hpf (0 - 3) Urine Microscopic WBC 3 /HPF (0-3) Urine Squamous Epithelial Cells Few /hpf (<5) Urine Bacteria Few /hpf (None Seen) Urine Glucose Normal mg/dL (Normal) B-Type Natriuretic Peptide 3831.34 pg/mL (0-100) Lipase 25 U/L (12-53) Other Laboratory Tests 06/14/24 05:04 Brief Hx & Hospital Course: 43-year-old male patient with past medical history of CHF, diabetes and liver cirrhosis presented with complaints of abdominal distention. As per the patient, he gets paracentesis every two weeks. Patient was at urgent Care but patient's blood pressure was low, was combative and EMS was called. On arrival patient mentioned abdominal distention and rectal pain. Paracentesis was done, 8 L of ascitic fluid was removed. pt was confused initially in the in the hospital stay. Patient had episode of coffee-ground emesis, after which patient was started on IV Protonix and octreotide. Patient later had hypotension for which he was started on IV norepinephrine drip. Patient level of consciousness improved. Patient was started on oxygen and x-ray showed mild congestion. GI was consulted. Patient had abdominal distention after which another paracentesis was done, 12.5 L were removed. Patient was started on diet as per GI recommendation. Patient was having atrial fibrillation with RVR after which amiodarone was started. Patient was still on norepinephrine drip Patient decided to leave against medical advice despite explanation about the risk of leaving against medical advice including . Consults/Reason for consult GI consult Radiology consult Operations or Procedures ORDERING PHYSICIAN: PROCEDURE(s): ORDER NUMBER(s): , ACCESSION NUMBER(s): Other Procedure Procedure Paracentesis ultrasound-guided Indication Rule out spontaneous bacterial peritonitis and severe abdominal pain Anesthetic Lidocaine Prep Iodine Success Successful procedure, obtain approximately 8 L of ascitic fluid which was serous Informed consent obtained: Yes Risks, benefits, and alternati: Yes Date of Service: Jun 08, 2024 US PARACENTESIS, HISTORY: ASCITES PROCEDURE: Informed consent was obtained. The patient was placed in supine position. A limited localization ultrasound of the abdomen was obtained, and the skin site over the largest pocket of fluid was marked and entry site was prepped with chlorhexidine which was allowed to dry and draped in the usual sterile fashion. Time out was performed. Following administration of 1% lidocaine local anesthetic, a 5 Telugu centesis needle catheter was percutaneously inserted into the peritoneal collection until fluid was aspirated. The catheter was advanced into the fluid collection and the needle removed. About 35625 cc of fluid was aspirated and specimen sent for appropriate cultures/cytology/cultures and cytology. The catheter was then removed and a sterile dressing applied. 50 gm of albumin colloid infusion was given IV. No immediate complication was identified. FINDINGS: Limited ultrasound imaging demonstrates moderate ascites. Aspirated fluid was clear and serous. IMPRESSION: US-guided paracentesis with 12.5L removed. Condition at Discharge: Undetermined Final Diagnosis/Problems List undetermined, pt left AMA Acute hypoxic respiratory failure due to questionable CHF exacerbation Hepatic encephalopathy, stage 0-1. Shock likely septic/hypovolemic/cardiogenic ? Acute heart failure with reduced ejection fraction Moderate to severe TR Atrial fibrillation with RVR Peripheral vascular disease with bilateral above-knee amputation present on admission Large volume ascites status post paracentesis 2 times GI bleed likely upper GI bleed Decompensated liver cirrhosis Transaminitis with hyperbilirubinemia likely due to liver cirrhosis Gallbladder wall thickening without evidence of acute cholecystitis Diabetes mellitus type 2 Hyponatremia likely due to hypovolemia due to liver cirrhosis SULY due to be VMN suspected prerenal disease in the setting of hypotension and decreased renal perfusion, questionable chronic disease since baseline is unknown Sepsis with septic shock questionable SBP Sacral ulcer present on admission Discharge Disposition: AMA Discharge Instruct/Medications Activity comment: Patient left AMA Follow Up/Referral: Patient left AMA Medications: Patient left AMA Discharge Statement: "Patient was advised to return to the ER or call 911 if any headaches, dizziness, shortness of breath, chest pain, abdominal pain, bleeding, fevers, or worsening of medical condition. Patient was counseled about treatment plan, medications, possible side effects, patientverbalized understanding. All questions were answered to the best of my ability. This discharge took greater then 30 minutes in planning, reviewing documentation, counseling the patient, and discussing with other team members." ASSESSMENT ASSESSMENT Assessment RONEY BECK RESIDENT Jun 14, 2024 19:00
== END 2024-06-14 15:42 | disposition left against medical advice (07) | DRG 720 ==
LOC: EDBD 16:40 → ER 16:59 → TELE 06-09 00:58
PROVIDERS: ADMIT Internal Medicine; ATTEND Emergency Medicine
PROC: 0W9G3ZZ Drainage of Peritoneal Cavity, Percutaneous Approach (ICD-10-PCS; principal; 2024-06-08)
PROC: 0W9G3ZZ Drainage of Peritoneal Cavity, Percutaneous Approach (ICD-10-PCS; 2024-06-12)
DX: A41.9 Sepsis, unspecified organism (principal); N17.0 Acute kidney failure with tubular necrosis; R65.21 Severe sepsis with septic shock; I50.23 Acute on chronic systolic (congestive) heart failure; E87.20 Acidosis, unspecified; K65.2 Spontaneous bacterial peritonitis; R18.8 Other ascites; E87.1 Hypo-osmolality and hyponatremia; I13.0 Hypertensive heart and chronic kidney disease with heart failure and stage 1 through stage 4 chronic kidney disease, or unspecified chronic kidney disease; K76.82 Hepatic encephalopathy; E87.8 Other disorders of electrolyte and fluid balance, not elsewhere classified; K74.60 Unspecified cirrhosis of liver; I48.91 Unspecified atrial fibrillation; Z53.29 Procedure and treatment not carried out because of patient's decision for other reasons; E11.22 Type 2 diabetes mellitus with diabetic chronic kidney disease; N18.9 Chronic kidney disease, unspecified; Z68.31 Body mass index [BMI] 31.0-31.9, adult; E66.9 Obesity, unspecified; E11.51 Type 2 diabetes mellitus with diabetic peripheral angiopathy without gangrene; Z89.512 Acquired absence of left leg below knee; Z89.511 Acquired absence of right leg below knee; Z91.199 Patient's noncompliance with other medical treatment and regimen due to unspecified reason
CPT/HCPCS: 36415; 71045; 76700; 76942; 80048; 80053; 80076; 80202; 81001; 82105; 82140; 82962; 83615; 83690; 83735; 83880; 83986; 85007; 85025; 85027; 85610; 85730; 86803; 87040; 87205; 87340; 89051; 93005; 93306; G0378; J2470; J2543; P9047